=== PATIENT | female | born 1935 | race Caucasian/White ===

== ENCOUNTER 2019-03-19 17:28 | Emergency (ER) | payer OTHER ==
[2019-03-19 18:03] LABS: Urine Blood TRACE (NEG); Urine Glucose NEGATIVE (NEG); Urine Protein NEGATIVE (NEG)
[2019-03-19 18:09] LABS: Absolute Lymphocytes (CBC) 2.2 K/uL (0.7-4.9); Absolute Monocytes 0.9 K/uL (0.1-1.3); Absolute Neutrophil 2.6 K/uL (1.8-8.0); Basophils % 0.6 % (0-1.3); Eosinophils % 2.2 % (0-4.4); Hematocrit 38.5 % (36.0-45.0); MPV 10.3 fL (7.6-11.3); Monocytes % 14.5 % (3.3-12.3); RBC Red Blood Cell Count 4.31 M/uL (3.86-4.86)
[2019-03-19 18:16] LABS: Urine Bacteria <20 /HPF (<20); Urine Culture Reflex Order REFLEXED
[2019-03-19] MEDS ORDERED: NA CHLORIDE 0.9% 500 ML ONE (18:22)
[2019-03-19] MEDS ORDERED: cloNIDine HCl 0.1 MG TAB ONE (18:22)
[2019-03-19 18:27] LABS: ALT/SGPT 19 U/L (12-78); AST/SGOT 17 U/L (15-37); Albumin 3.7 g/dL (3.4-5.0); Alkaline Phosphatase 80 U/L (45-117); BUN Blood Urea Nitrogen 15 mg/dL (7-18); Bicarbonate 28 mmol/L (21-32); Bilirubin Direct < 0.1 mg/dL (0-0.2); Bilirubin Total 0.3 mg/dL (0.2-1.0); Glucose Level 101 mg/dL (74-106); Lipase 100 U/L (73-393); Potassium 3.7 mmol/L (3.5-5.1); Protein, Total 7.8 g/dL (6.4-8.2); Sodium Level 141 mmol/L (136-145)
--- NOTE | 2019-03-19 19:26 | RAD REPORT ---
EXAM DESCRIPTION: CTAbdomen Pelvis W Contrast - 03/19/2019 7:16 pm CLINICAL HISTORY: Abdominal pain. lower abdomen pain COMPARISON: <Comparisons> TECHNIQUE: Biphasic CT imaging of the abdomen and pelvis was performed with 100 ml non-ionic IV cont rast. All CT scans are performed using dose optimization technique as appropriate and may include automated exposure control or mA/KV adjustment according to patient size. FINDINGS: The lung bases are clear. The liver, spleen, pancreas, adrenal glands and kidneys are within normal limits. No bowel obstruction, free air, free fluid or abscess. Moderate stool volume in the colon. The append ix is normal. No evidence of significant lymphadenopathy. No suspicious bony findings. IMPRESSION: No acute intra-abdominal or pelvic finding.
--- NOTE | 2019-03-19 19:36 | ER ---
Nurse's Notes [facility] Name: Juliana Washburn Age: 84 yrs Sex: Female : 1935 Arrival Date: 03/19/2019 Time: 17:31 Bed 19 Private MD: Hudson Alvarado Diagnosis: Dysuria Presentation: 03/19 17:31 Presenting complaint: Patient states: pain with urination x 4 days. Blood tinged toilet ss paper after voiding that occurred yesterday. Pt gave urine specimen at PCP's office yesterday, but has not heard back about results. Transition of care: patient was not received from another setting of care. Onset of symptoms was April 19, 2019. Risk Assessment: Do you want to hurt yourself or someone else? Patient reports no desire to harm self or others. Initial Sepsis Screen: Does the patient meet any 2 criteria? No. Patient's initial sepsis screen is negative. Does the patient have a suspected source of infection? Yes: Dysuria/Frequency/Urgency/UTI. Care prior to arrival: None. 17:31 Method Of Arrival: Ambulatory ss 17:31 Acuity: CAROL 3 ss Historical: - Allergies: 17:35 Azithromycin; tw2 17:35 Morphine; tw2 - Home Meds: 17:35 metoprolol tartrate 25 mg Oral tab 1 tab once daily [Active]; meloxicam 15 mg Oral tab tw2 1 tab once daily [Active]; - PMHx: 17:35 Hypertension; Anxiety; tw2 - PSHx: 17:35 None; tw2 - Immunization history:: Adult Immunizations. - Social history:: Smoking status: . - Ebola Screening: : Patient denies travel to an Ebola-affected area in the 21 days before illness onset. Screenin:34 Abuse screen: Denies threats or abuse. Nutritional screening: No deficits noted. tw2 Tuberculosis screening: No symptoms or risk factors identified. Fall Risk Secondary diagnosis (15 points) impaired mobility. Assessment: 17:45 General: Appears in no apparent distress. comfortable, Behavior is calm, cooperative, em Denies fever. Pain: Denies pain. Neuro: Level of Consciousness is awake, alert, obeys commands, Oriented to person, place, time, situation. Cardiovascular: Capillary refill < 3 seconds Patient's skin is warm and dry. Respiratory: Airway is patent Respiratory effort is even, unlabored, Respiratory pattern is regular, symmetrical. GI: Abdomen is flat, Patient currently denies nausea, vomiting. : Reports hematuria. Derm: Skin is intact, is healthy with good turgor, Skin is pink, warm \T\ dry. Musculoskeletal: Capillary refill < 3 seconds, Range of motion: intact in all extremities. 18:00 Reassessment: The previous assessment is accurate, call light remains within reach. ss 18:48 Reassessment: Patient appears in no apparent distress at this time. Patient and/or em family updated on plan of care and expected duration. Pain level reassessed. Patient is alert, oriented x 3, equal unlabored respirations, skin warm/dry/pink. 19:05 Reassessment: Patient appears in no apparent distress at this time. Patient and/or jd3 family updated on plan of care and expected duration. Pain level reassessed. Patient is alert, oriented x 3, equal unlabored respirations, skin warm/dry/pink. Patient denies pain at this time. 19:53 Reassessment: Patient appears in no apparent distress at this time. Patient and/or jd3 family updated on plan of care and expected duration. Pain level reassessed. Patient is alert, oriented x 3, equal unlabored respirations, skin warm/dry/pink. Vital Signs: 17:31 BP 201 / 90; Pulse 85; Resp 18; Temp 98.6(O); Pulse Ox 100% on R/A; ss 18:30 BP 191 / 82; Pulse 79; Resp 18; Pulse Ox 99% on R/A; em 19:00 BP 153 / 76; Pulse 73; Resp 17 S; Pulse Ox 98% on R/A; jd3 19:53 BP 142 / 66; Pulse 60; Resp 16 S; Pulse Ox 96% on R/A; jd3 ED Course: 17:31 Patient arrived in ED. mr 17:31 Hudson Alvarado MD is Private Physician. mr 17:36 Arm band placed on. tw2 17:36 Call light in reach. Adult w/ patient. toll line mechanic on. Pulse ox on. NIBP on. tw2 17:39 Triage completed. ss 17:41 Hi Goodwin PA is PHCP. cp 17:41 Hi Maxwell MD is Attending Physician. cp 17:46 Urine collected: clean catch specimen, clear. 3 17:58 Xenia Wen, PHU is Primary Nurse. ss 18:00 Initial lab(s) drawn, by me, sent to lab. Inserted saline lock: 22 gauge in right dh3 forearm, using aseptic technique. Blood collected. 18:03 Mike Winter LVN is Primary Nurse. em 19:13 Patient moved to PA via wheelchair. ca 19:17 Primary Nurse role handed off by Mike Winter LVN jd3 19:17 Ede Sarmiento, PHU is Primary Nurse. jd3 19:17 CT Abd/Pelvis - W/Contrast: no oral contrast In Process Unspecified. EDMS 19:17 CT completed. Patient tolerated procedure well. Patient moved back from PA. nj 19:34 Hudson Alvarado MD is Referral Physician. cp 19:53 No provider procedures requiring assistance completed. IV discontinued, intact, jd3 bleeding controlled, No redness/swelling at site. Pressure dressing applied. Administered Medications: 18:11 Drug: NS 0.9% 250 ml Route: IV; Rate: bolus; Site: right forearm; em 19:54 Follow up: Response: No adverse reaction; IV Status: Completed infusion jd3 18:11 Drug: cloNIDine 0.2 mg Route: PO; em 19:10 Follow up: Response: No adverse reaction jd3 18:46 Drug: NS 0.9% 1000 ml Route: IV; Rate: 75 ml/hr; Site: right forearm; em 19:54 Follow up: Response: No adverse reaction; IV Status: Order to discontinue infusion jd3 Outcome: 19:35 Discharge ordered by MD. cp 19:53 Discharged to home ambulatory. jd3 19:53 Condition: stable 19:53 Discharge instructions given to patient, family, Instructed on discharge instructions, follow up and referral plans. medication usage, Demonstrated understanding of instructions, follow-up care, medications, Prescriptions given X 2. 19:57 Patient left the ED. jd3 Signatures: Dispatcher [employer] BENIGNOMery Wilson Mike Winter LVN LVN Xenia Wen RN RN Hi Goodwin, SLOAN PA Rylee Costello RN RN 2 Akash Gutierrez [facility] Ede Sarmiento RN RN jd3 Corrections: (The following items were deleted from the chart) 17:44 17:31 Presenting complaint: Patient states: Pain with urination and blood on toilet ss paper after voiding that began yesterday. 17:52 17:31 Acuity: CAROL 4 [facility]
--- NOTE | 2019-03-19 19:36 | EDPHYS ---
Physician Documentation [facility] Name: Juliana Washburn Age: 84 yrs Sex: Female : 1935 Arrival Date: 03/19/2019 Time: 17:31 Bed 19 Private MD: Hudson Alvarado ED Physician Hi Maxwell HPI: 03/19 18:00 This 84 yrs old Female presents to ER via Ambulatory with complaints of cp Urinary Problem. 18:00 The patient presents with urinary symptoms, dysuria, hematuria. cp 18:00 Onset: The symptoms/episode began/occurred 4 day(s) ago. Associated signs and symptoms: cp Pertinent positives: low back pain, lower abdomen pain, Pertinent negatives: fever. Historical: - Allergies: 17:35 Azithromycin; tw2 17:35 Morphine; tw2 - Home Meds: 17:35 metoprolol tartrate 25 mg Oral tab 1 tab once daily [Active]; meloxicam 15 mg Oral tab tw2 1 tab once daily [Active]; - PMHx: 17:35 Hypertension; Anxiety; tw2 - PSHx: 17:35 None; tw2 - Immunization history:: Adult Immunizations. - Social history:: Smoking status: . - Ebola Screening: : Patient denies travel to an Ebola-affected area in the 21 days before illness onset. ROS: 18:05 Constitutional: Negative for body aches, chills, fever, poor PO intake. cp 18:05 Eyes: Negative for injury, pain, redness, and discharge. cp 18:05 ENT: Negative for drainage from ear(s), ear pain, sore throat, difficulty swallowing, difficulty handling secretions. 18:05 Cardiovascular: Negative for chest pain, edema, palpitations. 18:05 Respiratory: Negative for cough, shortness of breath, wheezing. 18:05 Abdomen/GI: Positive for abdominal pain, of the suprapubic area, right lower quadrant and left lower quadrant, Negative for vomiting, diarrhea, constipation, black/tarry stool, rectal bleeding. 18:05 Back: Positive for radiated pain, of the low back area, Negative for injury or acute deformity, decreased range of motion. 18:05 : Positive for hematuria, burning with urination, Negative for vaginal bleeding. 18:05 Skin: Negative for rash. 18:05 Neuro: Negative for altered mental status, headache, weakness. 18:05 All other systems are negative. Exam: 18:15 Constitutional: The patient appears in no acute distress, alert, awake, non-toxic, well cp developed, well nourished. 18:15 Head/Face: Normocephalic, atraumatic. cp 18:15 Eyes: Periorbital structures: appear normal, Conjunctiva: normal, no exudate, no injection, Sclera: no appreciated abnormality, Lids and lashes: appear normal, bilaterally. 18:15 ENT: External ear(s): are unremarkable, Nose: is normal, Mouth: Lips: moist, Oral mucosa: moist, Posterior pharynx: is normal, airway is patent, no erythema, no exudate. 18:15 Chest/axilla: Inspection: normal, Palpation: is normal, no crepitus, no tenderness. 18:15 Cardiovascular: Rate: normal, Rhythm: regular. 18:15 Respiratory: the patient does not display signs of respiratory distress, Respirations: normal, no use of accessory muscles, no retractions, no splinting, no tachypnea, labored breathing, is not present, Breath sounds: are clear throughout, no decreased breath sounds, no stridor, no wheezing. 18:15 Abdomen/GI: Inspection: abdomen appears normal, Bowel sounds: active, all quadrants, Palpation: soft, in all quadrants, mild abdominal tenderness, in the suprapubic area, right lower quadrant and left lower quadrant, rebound tenderness, is not appreciated, voluntary guarding, is not appreciated, involuntary guarding, is not appreciated. 18:15 Back: pain, that is mild, of the low back area, ROM is normal. Vital Signs: 17:31 BP 201 / 90; Pulse 85; Resp 18; Temp 98.6(O); Pulse Ox 100% on R/A; ss 18:30 BP 191 / 82; Pulse 79; Resp 18; Pulse Ox 99% on R/A; em 19:00 BP 153 / 76; Pulse 73; Resp 17 S; Pulse Ox 98% on R/A; jd3 19:53 BP 142 / 66; Pulse 60; Resp 16 S; Pulse Ox 96% on R/A; jd3 MDM: 17:42 Patient medically screened. cp 19:35 Data reviewed: vital signs, nurses notes, lab test result(s), radiologic studies, CT cp scan, and as a result, I will discharge patient. 19:35 Counseling: I had a detailed discussion with the patient and/or guardian regarding: the cp historical points, exam findings, and any diagnostic results supporting the discharge/admit diagnosis, lab results, radiology results, the need for outpatient follow up, a family practitioner, to return to the emergency department if symptoms worsen or persist or if there are any questions or concerns that arise at home. Response to treatment: the patient's symptoms have mildly improved after treatment, and as a result, I will discharge patient. 03/19 17:48 Order name: Urine Microscopic Only; Complete Time: 18:57 cp 03/19 19:33 Interpretation: Normal except: UWBC 10-20; URBC 5-10. cp 03/19 17:51 Order name: Urine Dipstick--Ancillary (enter results); Complete Time: 18:57 ms 03/19 17:54 Order name: Basic Metabolic Panel 03/19 17:54 Order name: CBC with Diff; Complete Time: 18:57 cp 03/19 17:54 Order name: Creatinine for Radiology; Complete Time: 18:57 cp 03/19 17:54 Order name: Hepatic Function; Complete Time: 18:57 cp 03/19 17:48 Order name: Urine Dipstick-Ancillary (obtain specimen); Complete Time: 17:48 cp 03/19 17:54 Order name: Lipase; Complete Time: 18:57 cp 03/19 17:54 Order name: Basic Metabolic Panel; Complete Time: 18:57 EDMS 03/19 18:17 Order name: Urine Culture EDSC 03/19 18:59 Order name: CT Abd/Pelvis - W/Contrast: no oral contrast; Complete Time: 19:34 cp 03/19 17:54 Order name: IV Saline Lock; Complete Time: 18:04 cp 03/19 17:54 Order name: Labs collected and sent; Complete Time: 18:04 cp Administered Medications: 18:11 Drug: NS 0.9% 250 ml Route: IV; Rate: bolus; Site: right forearm; em 19:54 Follow up: Response: No adverse reaction; IV Status: Completed infusion jd3 18:11 Drug: cloNIDine 0.2 mg Route: PO; em 19:10 Follow up: Response: No adverse reaction jd3 18:46 Drug: NS 0.9% 1000 ml Route: IV; Rate: 75 ml/hr; Site: right forearm; em 19:54 Follow up: Response: No adverse reaction; IV Status: Order to discontinue infusion jd3 Disposition: 03/19/19 19:35 Discharged to Home. Impression: Dysuria. - Condition is Stable. - Discharge Instructions: Dysuria. - Prescriptions for Augmentin 875- 125 mg Oral Tablet - take 1 tablet by ORAL route every 12 hours for 7 days; 14 tablet. Pyridium 200 mg Oral Tablet - take 1 tablet by ORAL route every 8 hours for 3 days; 9 tablet. - Medication Reconciliation Form, Thank You Letter, Antibiotic Education, Prescription Opioid Use form. - Follow up: Hudson Alvarado MD; When: 2 - 3 days; Reason: Recheck today's complaints. - Problem is new. - Symptoms have improved. Addendum: 03/23/2019 08:20 Co-signature as Attending Physician, Hi Maxwell MD I agree with the assessment and c infante plan of care. Signatures: Dispatcher [employer] EDSC Hi Maxwell MD MD cha Munoz, Edgar, COPY READER COPY READER Hi Goodwin PA PA cp Rylee Baez RN RN tw2 Ede Sarmiento RN RN jd3 Corrections: (The following items were deleted from the chart) 03/19 19:57 19:35 03/19/2019 19:35 Discharged to Home. Impression: Dysuria. Condition is Stable. jd3 Forms are Medication Reconciliation Form, Thank You Letter, Antibiotic Education, Prescription Opioid Use. Follow up: Hudson Alvarado; When: 2 - 3 days; Reason: Recheck today's complaints. Problem is new. Symptoms have improved. cp
[2019-03-19 20:05] VITALS: TEMP 98.6
[2019-03-19 20:09] VITALS: BP 142/66; O2SAT 96
== END 2019-03-19 19:57 | disposition home or self-care (01) ==
LOC: ER 17:28
DX: R30.0 Dysuria (principal); I10 Essential (primary) hypertension; F41.9 Anxiety disorder, unspecified; Z88.1 Allergy status to other antibiotic agents; Z88.5 Allergy status to narcotic agent
CPT/HCPCS: 96361; 87088; 85025; 87086; 80048; 36415; 80076; 83690; 74177; 96360; 99285; Q9967; 81003; 81015

== ENCOUNTER 2019-11-23 20:41 | Observation (INO) | payer OTHER ==
[2019-11-23 21:20] LABS: Absolute Lymphocytes (CBC) 1.8 K/uL (0.7-4.9); Basophils % 0.9 % (0-1.3); Hematocrit 39.8 % (36.0-45.0); MPV 10.1 fL (7.6-11.3); RBC Red Blood Cell Count 4.37 M/uL (3.86-4.86)
[2019-11-23 21:34] LABS: ALT/SGPT 21 U/L (12-78); AST/SGOT 20 U/L (15-37); Alkaline Phosphatase 82 U/L (45-117); BUN Blood Urea Nitrogen 15 mg/dL (7-18); Bicarbonate 28 mmol/L (21-32); Bilirubin Direct < 0.1 mg/dL (0-0.2); Bilirubin Total 0.3 mg/dL (0.2-1.0); Glucose Level 114 mg/dL (74-106); Lipase 115 U/L (73-393); Potassium 3.3 mmol/L (3.5-5.1); Protein, Total 8.1 g/dL (6.4-8.2); Sodium Level 139 mmol/L (136-145)
[2019-11-23 23:04] LABS: Urine Blood NEGATIVE (NEG); Urine Glucose NEGATIVE (NEG); Urine Protein NEGATIVE (NEG); Urine Specific Gravity 1.015 (1.005-1.030); Urine pH 6.5 (5.0-7.0)
--- NOTE | 2019-11-24 00:43 | EDPHYS ---
Physician Documentation [facility] Name: Juliana Washburn Age: 84 yrs Sex: Female : 1935 Arrival Date: 11/23/2019 Time: 20:45 Bed 7 Private MD: ED Physician Walter Mackenzie HPI: 11/24 01:46 This 84 yrs old Female presents to ER via Ambulatory with complaints of tw4 Abdominal Pain. 01:46 The patient presents with abdominal pain in the epigastric area. Onset: The tw4 symptoms/episode began/occurred today. The symptoms radiate to mid-sternal area. Associated signs and symptoms: none. The symptoms are described as dull. Modifying factors: The symptoms are alleviated by nothing, the symptoms are aggravated by nothing. The patient has not experienced similar symptoms in the past. Historical: - Allergies: 11/23 21:10 Azithromycin; ea 21:10 Morphine; ea - Home Meds: 21:10 amlodipine 5 mg tab 1 tab once daily [Active]; ea - PMHx: 21:10 Anxiety; Hypertension; ea - PSHx: 21:10 None; ea - Immunization history:: Adult Immunizations up to date. - Coronavirus screen:: The patient has NOT traveled to [place], [place], or [place] in the past 14 days. Proceed with normal triage process as indicated. The patient has NOT had contact with known/suspected case of Coronavirus? Proceed with normal triage procedures. - Social history:: Smoking status: Patient denies any tobacco usage or history of. - Ebola Screening: : No symptoms or risks identified at this time. ROS: 11/24 01:46 Constitutional: Negative for fever, chills, and weight loss, Eyes: Negative for injury, tw4 pain, redness, and discharge, Respiratory: Negative for shortness of breath, cough, wheezing, and pleuritic chest pain, Back: Negative for injury and pain, MS/Extremity: Negative for injury and deformity, Skin: Negative for injury, rash, and discoloration, Neuro: Negative for headache, weakness, numbness, tingling, and seizure. Cardiovascular: Positive for chest pain, Negative for edema, orthopnea, palpitations, paroxysmal nocturnal dyspnea. Abdomen/GI: Positive for abdominal pain, nausea, Negative for nausea and vomiting, nausea, vomiting, and diarrhea, vomiting, diarrhea, constipation, abdominal cramps, abdominal distension, anorexia, dysphagia, black/tarry stool, rectal pain, rectal bleeding, bowel incontinence, flatulence. Exam: 01:46 Constitutional: This is a well developed, well nourished patient who is awake, alert, tw4 and in no acute distress. Head/Face: Normocephalic, atraumatic. Chest/axilla: Normal chest wall appearance and motion. Nontender with no deformity. No lesions are appreciated. Cardiovascular: Regular rate and rhythm with a normal S1 and S2. No gallops, murmurs, or rubs. Normal PMI, no JVD. No pulse deficits. Respiratory: Lungs have equal breath sounds bilaterally, clear to auscultation and percussion. No rales, rhonchi or wheezes noted. No increased work of breathing, no retractions or nasal flaring. Abdomen/GI: Soft, non-tender, with normal bowel sounds. No distension or tympany. No guarding or rebound. No evidence of tenderness throughout. Back: No spinal tenderness. No costovertebral tenderness. Full range of motion. MS/ Extremity: Pulses equal, no cyanosis. Neurovascular intact. Full, normal range of motion. Neuro: Awake and alert, GCS 15, oriented to person, place, time, and situation. Cranial nerves II-XII grossly intact. Motor strength 5/5 in all extremities. Sensory grossly intact. Cerebellar exam normal. Normal gait. Vital Signs: 11/23 21:05 BP 195 / 91; Pulse 73; Resp 17; Temp 98.2; Pulse Ox 100% on R/A; Weight 66.22 kg; ea Height 5 ft. 2 in. (157.48 cm); Pain 4/10; 22:47 BP 179 / 70; Pulse 73; Resp 18; Pulse Ox 100% ; ea 23:11 BP 171 / 76; Pulse 72; Resp 18; Pulse Ox 100% on R/A; ea 11/24 01:00 BP 169 / 79; Pulse 64; Resp 18; Pulse Ox 97% on R/A; ea 02:36 BP 173 / 73; Pulse 64; Resp 18; Temp 98; Pulse Ox 97% ; ea 11/23 21:05 Body Mass Index 26.70 (66.22 kg, 157.48 cm) ea MDM: 11/23 20:55 Patient medically screened. tw4 01/29 00:39 Data reviewed: vital signs, nurses notes. Data reviewed: lab test result(s), cardiac enzymes, CBC, electrolytes, radiologic studies, CT scan. Data interpreted: Pulse oximetry: Interpretation: normal. Test interpretation: by ED physician or midlevel provider: ECG, plain radiologic studies. 11/23 20:56 Order name: Basic Metabolic Panel; Complete Time: 21:47 [facility] 11/23 21:47 Interpretation: Normal except: K 3.3; GLUC 114; GFR 59. [facility] 11/23 20:56 Order name: CBC with Diff; Complete Time: 21:47 [facility] 11/23 21:47 Interpretation: Within normal limits. [facility] 11/23 20:56 Order name: Creatinine for Radiology; Complete Time: 21:47 [facility] 11/23 21:47 Interpretation: Normal except: GFR 58. 11/23 20:56 Order name: Hepatic Function; Complete Time: 21:47 [facility] 11/23 21:47 Interpretation: Normal except: GLOB 4.1; A/G 1.0. [facility] 11/23 20:56 Order name: Lipase; Complete Time: 21:47 [facility] 11/23 21:47 Interpretation: Within normal limits: LIP 115. [facility] 11/23 20:56 Order name: Urine Microscopic Only 11/23 21:04 Order name: Troponin I; Complete Time: 21:47 11/23 21:47 Interpretation: Within normal limits: TROP < 0.02. [facility] 11/23 21:47 Order name: CT Abd/Pelvis - IV Contrast Only [facility] 11/23 22:12 Order name: Urine Dipstick--Ancillary (enter results) [facility] 11/24 01:58 Order name: Lipid Profile [facility] 11/24 01:58 Order name: Lipid Profile [facility] 11/24 01:58 Order name: Troponin I [facility] 11/24 01:58 Order name: Troponin I [facility] 11/24 01:58 Order name: Troponin I [facility] 11/23 20:56 Order name: IV Saline Lock; Complete Time: 21:04 [facility] 11/23 20:56 Order name: Labs collected and sent; Complete Time: 21:05 [facility] 11/23 20:56 Order name: Urine Dipstick-Ancillary (obtain specimen); Complete Time: 00:10 [facility] 11/23 21:04 Order name: EKG - Nurse/Tech; Complete Time: 22:06 11/23 21:04 Order name: Cardiac monitoring; Complete Time: 22:06 11/24 00:40 Order name: CXR XRAY [facility] 11/24 01:58 Order name: Heart Healthy [facility] 11/24 01:58 Order name: Echo with Doppler [facility] 11/24 01:58 Order name: EKG Electrocardiogram [facility] 11/24 01:58 Order name: EKG Electrocardiogram [facility] EC:46 Rate is 74 beats/min. Rhythm is regular. QRS [place] is Normal. MA interval is normal. QRS tw4 interval is normal. QT interval is normal. No Q waves. T waves are Normal. No ST changes noted. Clinical impression: Normal ECG. Interpreted by me. Reviewed by me. Administered Medications: 01:53 Not Given (Hemodynamic Parameters): hydrALAZINE 10 mg IV at bolus once ea Disposition: 11/24/19 00:42 Hospitalization ordered by Yuni Neil for Observation. Preliminary diagnosis is Chest pain, unspecified. - Bed requested for Telemetry/MedSurg (observation). - Status is Observation. ea - Condition is Stable. - Problem is new. - Symptoms have improved. UTI on Admission? No Signatures: Dispatcher [employer] Angela Britt RN RN cg Antunez, Elena, RN RN ea Wadley, Terrence, MD MD tw4 Corrections: (The following items were deleted from the chart) 02:13 00:42 Hospitalization Ordered by Yuni Neil MD for Observation. Preliminary cg diagnosis is Chest pain, unspecified. Bed requested for Telemetry/MedSurg (observation). Status is Observation. Condition is Stable. Problem is new. Symptoms have improved. UTI on Admission? No. tw4 02:35 02:13 11/24/2019 00:42 Hospitalization Ordered by Yuni Neil MD for Observation. ea Preliminary diagnosis is Chest pain, unspecified. Bed requested for Telemetry/MedSurg (observation). Status is Observation. Condition is Stable. Problem is new. Symptoms have improved. UTI on Admission? No. cg
--- NOTE | 2019-11-24 00:43 | ER ---
Nurse's Notes [facility] Name: Juliana Washburn Age: 84 yrs Sex: Female : 1935 Arrival Date: 11/23/2019 Time: 20:45 Bed 7 Private MD: Diagnosis: Chest pain, unspecified Presentation: 11/23 21:05 Presenting complaint: Patient states: sudden sharp pain on the epigastric area that ea radiates down across the belly, rated as 10/10 initially. denies nausea/vomiting/diarrhea. Transition of care: patient was not received from another setting of care. Onset of symptoms was November 23, 2019 at 18:30. Risk Assessment: Do you want to hurt yourself or someone else? Patient reports no desire to harm self or others. Initial Sepsis Screen: Does the patient meet any 2 criteria? No. Patient's initial sepsis screen is negative. Does the patient have a suspected source of infection? No. Patient's initial sepsis screen is negative. Care prior to arrival: None. 21:05 Method Of Arrival: Ambulatory ea 21:05 Acuity: CAROL 3 ea Triage Assessment: 21:11 General: Appears in no apparent distress. Behavior is calm, cooperative. Pain: ea Complains of pain in abdomen Pain currently is 4 out of 10 on a pain scale. Neuro: Level of Consciousness is awake, alert, obeys commands, Oriented to person, place, time, situation. Cardiovascular: Patient's skin is warm and dry. Respiratory: Airway is patent. GI: Abdomen is flat, Reports constipation. Derm: Skin with poor turgor. Historical: - Allergies: 21:10 Azithromycin; ea 21:10 Morphine; ea - Home Meds: 21:10 amlodipine 5 mg tab 1 tab once daily [Active]; ea - PMHx: 21:10 Anxiety; Hypertension; ea - PSHx: 21:10 None; ea - Immunization history:: Adult Immunizations up to date. - Coronavirus screen:: The patient has NOT traveled to [place], [place], or [place] in the past 14 days. Proceed with normal triage process as indicated. The patient has NOT had contact with known/suspected case of Coronavirus? Proceed with normal triage procedures. - Social history:: Smoking status: Patient denies any tobacco usage or history of. - Ebola Screening: : No symptoms or risks identified at this time. Screenin:13 Abuse screen: Denies threats or abuse. Nutritional screening: No deficits noted. ea Tuberculosis screening: No symptoms or risk factors identified. Fall Risk None identified. Assessment: 21:13 General: Appears in no apparent distress. Pain: Complains of pain in epigastric area. ea Neuro: Level of Consciousness is awake, alert, obeys commands, Oriented to person, place, time, situation, Appropriate for age. Cardiovascular: Patient's skin is warm and dry. Respiratory: Airway is patent Respiratory effort is even, unlabored, Respiratory pattern is regular, symmetrical. Derm: Skin is pink, warm \T\ dry. Musculoskeletal: Circulation, motion, and sensation intact. 22:44 Reassessment: Patient and/or family updated on plan of care and expected duration. Pain ea level reassessed. Patient is alert, oriented x 3, equal unlabored respirations, skin warm/dry/pink. Returned from CT. 23:00 Reassessment: Patient and/or family updated on plan of care and expected duration. Pain ea level reassessed. Patient is alert, oriented x 3, equal unlabored respirations, skin warm/dry/pink. 11/24 00:00 Reassessment: Patient and/or family updated on plan of care and expected duration. Pain ea level reassessed. Patient is alert, oriented x 3, equal unlabored respirations, skin warm/dry/pink. Pt resting with eyes closed, respirations even and unlabored, chest expansions even and symmetrical. 01:39 Reassessment: Patient and/or family updated on plan of care and expected duration. Pain ea level reassessed. Patient is alert, oriented x 3, equal unlabored respirations, skin warm/dry/pink. 01:51 Reassessment: Report given to Laurie BAY. ea 02:30 Reassessment: Patient and/or family updated on plan of care and expected duration. Pain ea level reassessed. Patient is alert, oriented x 3, equal unlabored respirations, skin warm/dry/pink. Pt admitted to second floor, pt left ED via wheelchair per Laurie BAY . Pt tolerating well. Vital Signs: 11/23 21:05 BP 195 / 91; Pulse 73; Resp 17; Temp 98.2; Pulse Ox 100% on R/A; Weight 66.22 kg; ea Height 5 ft. 2 in. (157.48 cm); Pain 4/10; 22:47 BP 179 / 70; Pulse 73; Resp 18; Pulse Ox 100% ; ea 23:11 BP 171 / 76; Pulse 72; Resp 18; Pulse Ox 100% on R/A; ea 11/24 01:00 BP 169 / 79; Pulse 64; Resp 18; Pulse Ox 97% on R/A; ea 02:36 BP 173 / 73; Pulse 64; Resp 18; Temp 98; Pulse Ox 97% ; ea 11/23 21:05 Body Mass Index 26.70 (66.22 kg, 157.48 cm) ea ED Course: 11/23 20:45 Patient arrived in ED. jg7 20:55 Walter Mackenzie MD is Attending Physician. tw4 20:57 Polly Rudd RN is Primary Nurse. ea 21:00 Inserted saline lock: 20 gauge in right antecubital area, using aseptic technique. ea Blood collected. 21:09 Triage completed. ea 21:10 Arm band placed on Patient placed in the treatment room, on a stretcher, Patient ea notified of wait time. 21:13 Patient has correct armband on for positive identification. Bed in low position. Call ea light in reach. Side rails up X2. 22:42 CT Abd/Pelvis - IV Contrast Only In Process Unspecified. EDMS 11/24 00:40 Yuni Neil MD is Hospitalizing Provider. tw4 00:54 CXR XRAY In Process Unspecified. EDMS 01:39 No provider procedures requiring assistance completed. Patient admitted, IV remains in ea place. Administered Medications: 01:53 Not Given (Hemodynamic Parameters): hydrALAZINE 10 mg IV at bolus once ea Outcome: 00:42 Decision to Hospitalize by Provider. tw4 01:00 Instructed on the need for admit. ea 02:35 Admitted to Med/surg accompanied by nurse, via wheelchair, with chart, Report called to sherley Sullivan RN 02:35 Condition: stable 02:35 Patient left the ED. ea Signatures: Dispatcher [employer] EDPolly Huggins RN RN Walter Ramirez MD MD tw4 Oksana Eldridge jg
[2019-11-24] MEDS ORDERED: ACETAMINOPHEN 500 MG TAB PO PRN (01:50)
[2019-11-24] MEDS ORDERED: ALPRAZOLAM 0.25 MG TABLET PO PRN (01:50)
[2019-11-24] MEDS ORDERED: MORPHINE 4 MG/ML SYR IV PRN (01:50)
[2019-11-24 02:44] VITALS: BMI 26.8
[2019-11-24] MEDS: METOPROLOL TAR 50 MG TAB PO SCH ×3 (05:35→20:23)
[2019-11-24 06:05] LABS: HDL Cholesterol 74 mg/dL (40-60); LDL Cholesterol, Calculated 105 (<130); Troponin I < 0.02 ng/mL (0.0-0.045)
--- NOTE | 2019-11-24 06:39 | EKG ---
Test Date: 2019-11-23 Test Time: 21:20:00 Sales Rep: VIVIANA MEASUREMENT RESULTS: Intervals: Rate: 74 ND: 156 QRSD: 72 QT: 390 QTc: 432 [place]: P: 25 ND: 156 QRS: 3 T: 17 INTERPRETIVE STATEMENTS: Normal sinus rhythm Normal ECG Compared to ECG 07/28/2017 08:32:28 No significant changes Electronically Signed On 11-24-19 06:38:16 BOX STAMPER by Jose M Borges
--- NOTE | 2019-11-24 08:01 | RAD REPORT ---
EXAM DESCRIPTION: Sofi Single View11/24/2019 12:54 am CLINICAL HISTORY: Chest pain COMPARISON: 2018 FINDINGS: The lungs appear clear of acute infiltrate. The heart is mildly enlarged IMPRESSION: No acute abnormalities displayed
[2019-11-24] MEDS: PANTOPRAZOLE 40MG TABLET PO SCH ×2 (10:04→20:22)
[2019-11-24] MEDS: lisinopriL 10 MG TAB PO SCH (10:04)
[2019-11-24] MEDS: ASPIRIN EC 81 MG TAB PO SCH (10:04)
[2019-11-24] MEDS: ENOXAPARIN 40 MG/0.4 ML SQ SCH (10:04)
--- NOTE | 2019-11-24 10:52 | ECHO ---
HEIGHT: 5 ft 2 in WEIGHT: 146 lb 9.6 oz DATE OF STUDY: 11/24/[address]: Yuni Neil MD 2-DIMENSIONAL: YES M.MODE: YES DOPPLER: YES COLOR FLOW: YES TDS: PORTABLE: DEFINITY: BUBBLE STUDY: DIAGNOSIS: CHEST PAIN CARDIAC HISTORY: CATHERIZATION: NO SURGERY: NO PROSTHETIC VALVE: NO PACEMAKER: NO MEASUREMENTS (cm) DIASTOLIC (NORMALS) SYSTOLIC (NORMALS) IVSd 0.8 (0.6-1.2) LA Diam 3.6 (1.9-4.0) LVEF 55% LVIDd 4.2 (3.5-5.7) LVIDs 3.0 (2.0-3.5) %FS 28% LVPWd 0.8 (0.6-1.2) Ao Diam 2.6 (2.0-3.7) 2 DIMENSIONAL ASSESSMENT: RIGHT ATRIUM: NORMAL LEFT ATRIUM: NORMAL RIGHT VENTRICLE: NORMAL LEFT VENTRICLE: NORMAL TRICUSPID VALVE: NORMAL MITRAL VALVE: NORMAL PULMONIC VALVE: NORMAL AORTIC VALVE: NORMAL PERICARDIAL EFFUSION: NONE AORTIC ROOT: NORMAL LEFT VENTRICULAR WALL MOTION: NORMAL DOPPLER/COLOR FLOW: NORMAL COMMENTS: NORMAL 2-DIMENSIONAL ECHOCARDIOGRAM WITH DOPPLER. TECHNOLOGIST: ANTHONY DAVIES
--- NOTE | 2019-11-24 11:54 | RAD REPORT ---
EXAM DESCRIPTION: CT - Abdomen Pelvis W Contrast - 11/24/2019 4:59 am CLINICAL HISTORY: The patient is 84 years old and is Female; ABD PAIN TECHNIQUE: Axial computed tomography images of the abdomen and pelvis with intravenous contrast. S agittal and coronal reformatted images were created and reviewed. This CT exam was performed using one or more of the following dose reduction techniques: automated exposure control, adjustment of t he mA and/or kV according to patient size, and/or use of iterative reconstruction technique. COMPARISON: No relevant prior studies available. FINDINGS: LUNG BASES: Unremarkable. No mass. No consolidation. ABDOMEN: LIVER: Unremarkable. No mass. GALLBLADDER AND BILE DUCTS: No calcified stones. No ductal dilation. PANCREAS: The pancreas is atrophic. SPLEEN: Unremarkable. ADRENALS: Unremarkable. No mass. KIDNEYS AND URETERS: Unremarkable. The kidneys enhance symmetrically. No obstructing renal or ur eteral calculus is seen. No hydronephrosis or hydroureter. No perinephric fluid or stranding. STOMACH AND BOWEL: The stomach is decompressed. Small bowel is relatively normal in caliber. A m oderate to large amount of stool is present throughout colon. There is no mucosal thickening or evide nce of bowel obstruction. A small left inguinal hernia containing a knuckle of small bowel is noted . There is no evidence of strangulation. Findings are similar to prior exam. PELVIS: APPENDIX: The appendix is normal in caliber without surrounding inflammation. BLADDER: Unremarkable. No mass. REPRODUCTIVE: Unremarkable as visualized. ABDOMEN and PELVIS: INTRAPERITONEAL SPACE: Unremarkable. No free air. No significant fluid collection. BONES/JOINTS: Minimal multilevel degenerative changes spine is present. SOFT TISSUES: See above. VASCULATURE: Atherosclerosis of the vasculature is present. The vessels are normal in caliber. No abdominal aortic aneurysm. LYMPH NODES: Unremarkable. No enlarged lymph nodes. IMPRESSION: No acute findings on this contrasted CT of the abdomen and pelvis to explain the patient 's symptoms. Electronically signed by: Catie Reyna MD 11/23/2019 11:20 PM BRUSHER TENDER Due to temporary technical issues with the PACS/Fluency reporting system, reports are being signed by the in house radiologist as a courtesy to ensure prompt reporting. The interpreting radiologist is f ully responsible for the content of the report.
--- NOTE | 2019-11-24 12:50 | CON ---
History Of Present Illness: Ms. Washburn is 84. She came to the hospital with chest pain. The pain was epigastric, radiated downwards toward the navel. Since she has been in the hospital, EKGs and ca rdiac enzymes are normal. The pain lasted more than 2 hours. The patient has never had myocardial i nfarction, stroke, or diabetes before she takes blood pressure medicines. She has known peptic ulcer disease documented with endoscopy. The plan was made for her to get typical treatment for Helicobac ter pylori, but it apparently was never done and she has not been on any proton pump inhibitor or ano ther antacid regimen for several years. Physical Examination: GENERAL: 5 feet 2 inches, 146 pounds. HEENT: Normal. Lungs: Clear. Cardiac: Normal. Abdomen: Soft. Extremities: Normal. Diagnostic Studies: Electrocardiogram shows sinus rhythm is completely normal. Chest x-ray is ghassan l. Abdominal and pelvis CAT scan apparently showed nothing remarkable. Impression And Plan: The patient probably has recurrent peptic ulcer disease causing these symptoms. She is on Protonix and feeling better, so it is a possible explanation anyway. A pharmacologic nuc lear stress test and echocardiogram are pending and those are abnormal. We will return and consider doing a cardiac catheterization. WILLAM Voice ID: [id number] Report ID: [id number]
--- NOTE | 2019-11-24 13:41 | P.HP ---
Certification for Inpatient Patient admitted to: Observation With expected LOS: <2 Midnights Patient will require the following post-hospital care: None Practitioner: I am a practitioner with admitting privileges, knowledge of patient current condition, hospital course, and medical plan of care. Services: Services provided to patient in accordance with Admission requirements found in Title 42 Section 412.3 of the Code of Federal Regulations Patient History Date of Service: 11/24/19 Reason for admission: Chest pain rule out acute coronary syndrome History of Present Illness: Patient is an 84-year-old female came to the hospital chest discomfort. Pain was mainly in the sternal region with no radiation. She did have pain that went to the epigastric region and then it radiated to the left side underneath the rib cage. She also states that 2 days prior she had chest pain again and this time it radiated down to her left hand. She felt numbness and tingling for the next 10-15 minutes. This slowly went away. She has been followed up by Cardiology but has not had any interventions versus stress test performed in over a year. She does not remember the last time she had a stress test. She has multiple comorbidities and she will be admitted to be ruled out for an acute coronary syndrome. She has had a history of peptic ulcer disease as well. We can treat her with a PPI but we will also need to make sure this is not symptoms related to coronary artery disease. Further workup is pending. She will get troponins through today and her 2nd troponin will be this morning with the last troponin around 1:00 p.m.. Will probably need to do a stress test in a.m.. Allergies azithromycin Allergy (Verified 07/31/17 22:45) Hives morphine Allergy (Verified 07/31/17 22:45) feeling sick Home Medications: NK [No Home Meds] 11/24/19 - Past Medical/Surgical History Has patient received pneumonia vaccine in the past: No Diabetic: No -: HTN -: Anxiety -: vertigo -: Peptic ulcer disease Past Surgical History: Patient denies surgical history - Family History Father Medical History: Heart disease - Social History Smoking Status: Never smoker Alcohol use: No CD- Drugs: No Caffeine use: Yes Place of Residence: Home Review of Systems 10-point ROS is otherwise unremarkable Physical Examination - Vital Signs Temperature: 97.7 F Blood Pressure: 148/66 Pulse: 57 Respirations: 18 Pulse Ox (%): 100 - Physical Exam General: Alert, In no apparent distress, Oriented x3 HEENT: Atraumatic, PERRLA, Mucous membr. moist/pink, EOMI, Sclerae nonicteric Neck: Supple, 2+ carotid pulse no bruit, No LAD, Without JVD or thyroid abnormality Respiratory: Clear to auscultation bilaterally, Normal air movement Cardiovascular: Regular rate/rhythm, Normal S1 S2 Gastrointestinal: Normal bowel sounds, Soft and benign, Non-distended, No tenderness Musculoskeletal: No clubbing, No swelling, No tenderness Integumentary: No rashes Neurological: Normal gait, Normal speech, Normal strength at 5/5 x4 extr, Normal tone, Sensation intact, Cranial nerves 3-12 intact, Normal affect Lymphatics: No axilla or inguinal lymphadenopathy - Studies Laboratory Data (last 24 hrs) 11/23/19 21:00: Troponin I < 0.02 11/23/19 21:00: Creatinine 0.93 11/23/19 21:00: WBC 6.1, Hgb 13.0, Hct 39.8, Plt Count 192 11/23/19 21:00: Sodium 139, Potassium 3.3 L, BUN 15, Creatinine 0.91, Glucose 114 H, Total Bilirubin 0.3, AST 20, ALT 21, Alkaline Phosphatase 82, Lipase 115 Assessment & Plan - Problems (Diagnosis) (1) Chest pain, rule out acute myocardial infarction Current Visit: Yes Status: Acute (2) Vertigo Onset Date: 08/01/17 Current Visit: No Status: Acute (3) Hypertension Current Visit: No Status: Chronic Qualifiers: (4) Family history of ischemic heart disease Current Visit: Yes Status: Acute - Plan 1. Serial troponins and EKG 2. Cardiology consultation 3. Echocardiogram and inpatient stress test(pending cardiology evaluation) 4. Anti-platelet therapy, anti coagulation, beta-get, statin, and O2 as needed 5. IV morphine for pain 6. Nitro p.r.n. Discharge Plan: Home Plan to discharge in: 48 Hours - Advance Directives Does patient have a Living Will: Yes Does patient have a Durable POA for Healthcare: No - Code Status/Comfort Care Code Status Assessed: Yes Code Status: Full Code Critical Care: No Time Spent Managing PTS Care (In Minutes): 45
[2019-11-25] MEDS ORDERED: REGADENOSON 0.4 MG/5 ML SYR IV ONE (08:11)
[2019-11-25] MEDS: METOPROLOL TAR 50 MG TAB PO SCH (08:57)
--- NOTE | 2019-11-25 09:45 | RAD REPORT ---
EXAM DESCRIPTION: NM - Rest Stress Cardiac Imaging - 11/25/2019 9:38 am CLINICAL HISTORY: Chest pain. COMPARISON: 2014 TECHNIQUE: The patient was administered approximately 10mCi of Tc 99m Sestamibi prior to resting SPE CT imaging of the heart. The patient was then administered approximately 30 mCi of Tc 99m Sestamibi f ollowing exercise or pharmacologic stress. Multiplanar SPECT images were reviewed. FINDINGS: There is uniformity of radiotracer uptake involving the entire left ventricular myocardiu m on rest and stress images. The left ventricular ejection fraction equals 73% IMPRESSION: Negative for a myocardial perfusion defect
[2019-11-25] MEDS: ENOXAPARIN 40 MG/0.4 ML SQ SCH (11:00)
[2019-11-25] MEDS: ASPIRIN EC 81 MG TAB PO SCH (11:01)
[2019-11-25] MEDS: lisinopriL 10 MG TAB PO SCH (11:01)
[2019-11-25] MEDS: PANTOPRAZOLE 40MG TABLET PO SCH (11:01)
[2019-11-25 12:30] VITALS: O2SAT 97
--- NOTE | 2019-11-25 13:04 | P.DS ---
Admission Date: 11/24/19 Discharge Date: 11/25/19 Disposition: ROUTINE DISCHARGE Discharge Condition: GOOD Reason for Admission: Chest pain rule out acute coronary syndrome Consultations: Forest Fire Specialist Supervisor - Problems (1) Chest pain, rule out acute myocardial infarction Current Visit: Yes Status: Acute Hospital Course: Ms. Washburn is 84-year-old female who came to the hospital with complaints of substernal pain that was mostly in the epigastric area radiated to the left side underneath the ribcage. Initial evaluation with serial troponins were unremarkable. EKG had no acute ischemic changes. Patient was evaluated by electrical manager and underwent Erica-scan stress test which was unremarkable. Echocardiogram was unremarkable. The patient has been initiated on Protonix and symptoms have improved. She remained hemodynamically stable and will be discharged home to follow up with her PCP. Vital Signs/Physical Exam: Temp Pulse Resp BP Pulse Ox 98 F 61 18 137/62 94 11/25/19 08:00 11/25/19 08:00 11/25/19 08:00 11/25/19 08:00 11/25/19 08:00 General: Alert, In no apparent distress HEENT: Atraumatic, PERRLA, EOMI Neck: Supple, JVD not distended Respiratory: Clear to auscultation bilaterally, Normal air movement Cardiovascular: Regular rate/rhythm, Normal S1 S2 Gastrointestinal: Normal bowel sounds, No tenderness Musculoskeletal: No tenderness Integumentary: No rashes Neurological: Normal speech, Normal tone, Normal affect Lymphatics: No axilla or inguinal lymphadenopathy Laboratory Data at Discharge: WBC 6.1 K/uL (4.3-10.9) 11/23/19 21:00 Hgb 13.0 g/dL (12.0-15.0) 11/23/19 21:00 Hct 39.8 % (36.0-45.0) 11/23/19 21:00 Plt Count 192 K/uL (152-406) 11/23/19 21:00 Sodium 139 mmol/L (136-145) 11/23/19 21:00 Potassium 3.3 mmol/L (3.5-5.1) L 11/23/19 21:00 BUN 15 mg/dL (7-18) 11/23/19 21:00 Creatinine 0.91 mg/dL (0.55-1.3) 11/23/19 21:00 Glucose 114 mg/dL (74-106) H 11/23/19 21:00 Total Bilirubin 0.3 mg/dL (0.2-1.0) 11/23/19 21:00 AST 20 U/L (15-37) 11/23/19 21:00 ALT 21 U/L (12-78) 11/23/19 21:00 Alkaline Phosphatase 82 U/L (45-117) 11/23/19 21:00 Troponin I < 0.02 ng/mL (0.0-0.045) 11/24/19 13:13 Triglycerides 81 mg/dL (<150) 11/24/19 05:15 Cholesterol 195 mg/dL (<200) 11/24/19 05:15 HDL Cholesterol 74 mg/dL (40-60) H 11/24/19 05:15 Cholesterol/HDL Ratio 2.64 11/24/19 05:15 Lipase 115 U/L (73-393) 11/23/19 21:00 Home Medications: Aspirin 81 mg PO DAILY #30 tab.chew 11/25/19 Metoprolol Tartrate [Lopressor*] 25 mg PO BID #30 tab 11/25/19 Pantoprazole [Protonix Tab*] 40 mg PO DAILY #60 tab 11/25/19 lisinopriL [Prinivil*] 10 mg PO DAILY #30 tab 11/25/19 New Medications: Aspirin 81 mg PO DAILY #30 tab.chew lisinopriL [Prinivil*] 10 mg PO DAILY #30 tab Metoprolol Tartrate [Lopressor*] 25 mg PO BID #30 tab Pantoprazole [Protonix Tab*] 40 mg PO DAILY #60 tab Diet: AHA Activity: Fall precautions Followup: Hudson Alvarado MD [Primary Care Provider] - Rufino Ritter MD [ACTIVE - CAN ADMIT] -
--- NOTE | 2019-11-25 13:54 | TREADPHA ---
DX: CHEST PAIN Date of Study: 11/25/2019 Ht: 5 2 Wt: 146 lb 9.6 oz Consulting Physician: ELOISE MEDICATIONS: AMLODIPINE HISTORY: 84 YEAR OLD FEMALE WITH EPISODE OF CHEST PAIN. HISTORY OF ANXIETY, HYPERTENSION, GASTRIC ULCER, PAIN FREE AT THIS TIME PHYSICIAL EXAMINATION: RESTING B.P.: 151/66 RESTING H.R.: 63 RESTING EKG: NORMAL PROTOCOL: LEXISCAN EXERCISE TIME: 3:30 B.P. AT PEAK STRESS: 134/66 IMPRESSION: LEXISCAN STRESS TEST PERFROMED. CARDIOLITE INJECTED PER PROTOCOL. NO SUPRA VENTRICULAR TAHCYARDIA, NO VENTRICULAR TACHYCARDIA OR ARRHYTMIAS NOTED. PATIENT DENIED CHEST PAIN, TOLERATED WELL. PLEASE SEE NUCLEAR MEDICINE REPORT.
[2019-11-25 14:59] VITALS: BP 146/64; TEMP 97.8
--- NOTE | 2019-11-25 17:15 | PN ---
Date of Progress Note: 11/25/2019 Ms. Washburn was admitted with chest pain. She was seen by Dr. Borges on 11/24/2019. An echocardiogr am and stress test were ordered. Ms. Washburn's main symptoms were headache and midepigastric pain th at lasted hours. She does have a history of peptic ulcer disease. Has been under a lot of stress. Her echocardiogram report is normal. Lexiscan has been done and is pending. We will see what that s hows prior to making final decision, but I think using proton pump inhibitors when she goes home woul d be reasonable. COLLIN/JIHAN Voice ID: [id number] Report ID: [id number]
== END 2019-11-25 14:53 | disposition home or self-care (01) ==
LOC: ER 20:41 → ERHOLD 11-24 02:06 → 2ND 11-24 02:15
PROVIDERS: ADMIT Hospitalist; ATTEND Hospitalist
DX: R07.9 Chest pain, unspecified (principal); K27.9 Peptic ulcer, site unspecified, unspecified as acute or chronic, without hemorrhage or perforation; R42 Dizziness and giddiness; I10 Essential (primary) hypertension; Z82.49 Family history of ischemic heart disease and other diseases of the circulatory system
CPT/HCPCS: 93005; 93017; 93306; 85025; 80048; 36415; 80061; 80076; 81003; 84484 ×3; 83690; 74177; 71045; 78452; 99285; Q9967; J1650 ×2; J2785; A9500; G0378 ×3

== ENCOUNTER 2022-09-24 10:57 | Emergency (ER) | payer OTHER ==
--- OUTSIDE RECORDS SUMMARY | 2022-09-24 11:04 | XMS REPORT | Continuity of Care Document ---
:1935 Author Organization [facility] t Address [address] [place] [address] [address]. [address] [place] [address] Care Team Providers Name Role Phone MEGAN ANDRE Primary Care Physician Unavailable Therapy, Adc Covid Infusion Attending Clinician Unavailable Pj Perez MD Attending Clinician PJ PEREZ Attending Clinician Unavailable Sharon Ruiz DO Attending Clinician SHARON RUIZ Attending Clinician Unavailable Doctor Unassigned, Maish Vaya Attending Clinician Unavailable Trey Oseguera RN Attending Clinician Unavailable Ryan Lambert DO Attending Clinician Sabino Amaya DO Attending Clinician Fan_CLAY Attending Clinician Unavailable Otilia_A_AH Attending Clinician Unavailable SHARON RUIZ Admitting Clinician Unavailable Sabino Amaya DO Admitting Clinician [place] Admitting Clinician Unavailable Otilia_A_AH Admitting Clinician Unavailable Payers Payer Name Policy Type Policy Number Effective Date Expiration Date S [facility] [place] [facility] [id number] 2019 [place] 00:00:00 (MEDICARE REPLACEMENT/ADVANT AGE - HMO) Problems Condition Condition Condition Status Onset Resolution Last Treating Co mments Source Name Details Category Date Date Treatment Clinician Date Essential Essential Disease Active 2020-10 Uni vers hypertensi hypertensi 0-20 it y of on on 00:00: [address] Noncomplia Noncomplia Disease Active 2020-10 U nivers nce nce 0-20 ity of 00:00: [place] 00 Medical Branch Chest pain Chest pain Disease Active 2020-10 U nivers 0-19 ity of 00:00: [place] 00 [facility] Branch Atypical Atypical Disease Active 2020-10 Unive rs chest pain chest pain 0-19 it y of 00:00: [place] 00 [facility] Headache Headache Problem Active 2019-10 Gray ge 1-20 Family 00:00: Practic 00 e Hypertensi Hypertensi Problem Active [place] ve ve 3-05 Family disorder Disorder 00:00: Practi c 00 e Cough Cough Problem Active [place] 3-05 Family 00:00: Practic 00 e Allergies, Adverse Reactions, Alerts Allergy Allergy Status Severity Reaction(s) Onset Inactive Treating Comm ents Source Name Type Date Date Clinician NO KNOWN Drug Active Univers ALLERGIE Class ity of S [facility] Azithrom Allergy Active Mild to Abdominal Lucia lorenza ycin to moderate pain Family substanc Practic e e Social History Social Habit Start Date Stop Date Quantity Comments Source Exposure to Not sure [facility] SARS-CoV-2 (event) Medica l Branch Tobacco use and 2021-08-14 2021-08-14 Never used [facility] exposure 00:00:00 00:00:00 [facility] Sex Ass[birth year] At [birth year] [facility] 00:00:00 00:00:00 [facility] Smoking Status Start Date Stop Date Source Never smoker [facility] Medications Ordered Filled Start Stop Current Ordering Indication Dosage Frequency Signature Comments Components Source Medication Medication Date Date Medication? Clinician (SIG) Name Name sotrovimab 2021- No [id number] 500mg 500 mg, IV Univers (XEVUDY) 11-27 Infusion, ity o f 500 mg in 23:15: 22:39 ONCE, [place] NaCl 0.9% 00 :00 Administer Medi kris (NS) 50 mL over 30 Branch MINI-BAG Minutes, On Fri11/27/21 at 1715, For [address] able 24 hours refrigerat ed or 6 hours at room temperatur e including transporta tion and infusion time.<b r> ondansetron 2021- No 4mg 4 mg, Slow Univers (ZOFRAN 11-23 IV Push, ity of (PF)) 20:30: 19:26 ONCE, 1 [place] injection 4 00 :00 dose, On Medi kris mg Fri Branch 11/23/21 at 1430, MICHAEL acetaminoph 2021- No 650mg 650 mg, U nivers en 11-23 Oral, ity of (TYLENOL) 19:30: 18:33 ONCE, 1 [place] tablet 650 00 :00 dose, On Medic al mg Fri Branch 11/23/21 at 1330, MICHAEL NaCl 0.9% 2021- No 1000mL at 999 Uni vers (NS) bolus 11-23 mL/hr, ity of infusion 19:30: 20:33 1,000 mL, Yared as 1,000 mL 00 :00 IV Medical Infusion, Branch ONCE, 1 dose, On 11/23/21 at 1330, MICHAEL ondansetron Yes [id number] 4mg Take 1 Univers 4 mg 11-23 tablet by ity of disintegrat 00:00: mouth [place] ing tablet 00 every 8 Medica l (eight) Branch hours as needed for Nausea and Vomiting (N/V). ondansetron Yes [id number] 4mg Take 1 Univers 4 mg - tablet by ity of disintegrat 00:00: mouth [place] ing tablet 00 every 8 Medica l (eight) Branch hours as needed for Nausea and Vomiting (N/V). amLODIPine 2020-10 No [id number] 5mg Take 1 Univers 5 mg tablet 0-21 11-21 tablet by it y of 00:00: 05:59 mouth [place] 00 :00 daily for Medical 30 days. Branch amLODIPine 2020-10- No [id number] 5mg Take 1 Univers 5 mg tablet 0-21 11-21 tablet by it y of 00:00: 05:59 mouth [place] 00 :00 daily for Medical 30 days. Branch amLODIPine 2020-10- No [id number] 5mg Take 1 Univers 5 mg tablet 0-21 11-21 tablet by it y of 00:00: 05:59 mouth [place] 00 :00 daily for Medical 30 days. Branch aspirin 2020-10 Yes 81mg 81 mg, Univers chewable 0-20 Oral, ity of tablet 81 14:00: DAILY, [place] mg 00 First dose Medical on Fri08/15/21 at 0900, Until Discontinu ed, Routine enoxaparin 2020-10 Yes 30mg 30 mg, Unive rs (LOVENOX) 0-20 Subcutaneo ity of injection 14:00: [place] mg 00 First dose Medical on Fri08/15/21 at 0900, Until Discontinu ed, Routine acetaminoph 2020-10 Yes 650mg 650 mg, Un orin en 0-19 Oral, ity of (TYLENOL) 23:53: Q6HPRN, [place] tablet 650 22 Starting Medic al mg on Fri08/14/21 at 1853, Until Discontinu ed, Routine, Pain (scale 1-3) amLODIPine 2020-10 Yes 10mg 10 mg, Unive rs (NORVASC) 0-19 Oral, ity of tablet 10 23:15: DAILY, [place] mg 00 First dose Medical on Fri08/14/21 at 1815, Until Discontinu ed, Routine nitroglycer 2020-10 Yes .4mg 0.4 mg, Uni vers in 0-19 Sublingual ity of (NITROSTAT) 19:43: , Q5MIN Yared as sublingual 25 PRN, 3 Medical tablet 0.4 doses, Branch mg Starting on Fri08/14/21 at 1443, Until Discontinu ed, MICHAEL, Chest pain metoprolol metoprolol No 1 BID metoprolol [facility] tartrate 25 tartrate 25 tartrate Family mg tablet mg tablet 25 mg Prac tic Take 1 Take 1 tablet e tablet tablet Take 1 twice a day twice a day tablet by oral by oral twice a route. route. day by oral route. Robitussin Robitussin No Robitussin [place] Cough-Chest Cough-Chest Cough-Ches Family [place] DM 1 [place] DM 1 t [place] DM Practic teaspoon teaspoon 1 teaspoon e Tessalon Tessalon No 1capsul TID Tessalon [facility] Perles 100 Perles 100 e(s) Perles 100 Family mg capsule mg capsule mg capsule Practic Take 1 Take 1 Take 1 e capsule 3 capsule 3 capsule 3 times a day times a day times a by oral by oral day by route route oral route before before before meals for meals for meals for 10 days. 10 days. 10 days. Vital Signs Vital Name Observation Time Observation Value Comments Source Systolic blood 2021-11-27 23:37:00 125 mm[Hg] Univer sity of pressure [place] [facility] Diastolic blood 2021-11-27 23:37:00 97 mm[Hg] Unive rsity of pressure [place] [facility] Heart rate 2021-11-27 23:37:00 77 /min [facility]i ty [facility] [place] [facility] [place] Body temperature 2021-11-27 23:37:00 37.33 Smiley Univ ersity of [place] [facility] Respiratory rate 2021-11-27 23:37:00 18 /min Univ ersity of [place] [facility] Oxygen saturation in 2021-11-27 23:37:00 94 /min University of Arterial blood by [facility] Pulse oximetry Branch Body height 2021-11-27 21:57:00 160 cm [facility]i ty [facility] [place] [facility] [place] Body weight 2021-11-27 21:57:00 58.968 kg Universi ty of [place] [facility] BMI 2021-11-27 21:57:00 23.03 kg/m2 Universi ty [facility] [place] [facility] Systolic blood 2021-11-23 23:00:00 121 mm[Hg] Univer sity of pressure [place] [facility] Diastolic blood 2021-11-23 23:00:00 74 mm[Hg] Unive rsity of pressure [place] [facility] Heart rate 2021-11-23 23:00:00 63 /min Universi ty of [place] [facility] Respiratory rate 2021-11-23 23:00:00 18 /min Univ ersity of [place] [facility] Oxygen saturation in 2021-11-23 23:00:00 96 /min University of Arterial blood by [facility] Pulse oximetry Branch Body temperature 2021-11-23 20:00:00 37.67 Smiley Univ [facility] [place] [facility] Body weight 2021-11-23 17:47:00 68.493 kg Universi ty of [place] [facility] Systolic blood 2021-08-15 20:09:00 132 mm[Hg] Univer sity of pressure [place] [facility] Diastolic blood 2021-08-15 20:09:00 68 mm[Hg] Unive rsity of pressure [place] [facility] Heart rate 2021-08-15 20:09:00 65 /min [facility] Body temperature 2021-08-15 20:09:00 36.33 Smiley [facility] Respiratory rate 2021-08-15 20:09:00 18 /min [facility] Oxygen saturation in 2021-08-15 20:09:00 97 /min University Arterial blood by [facility] Pulse oximetry Branch Body weight 2021-08-14 19:00:00 68.493 kg [facility] BP Diastolic 2019-12-30 00:00:00 80 mm[Hg] [facility] Height 2019-12-30 00:00:00 62 [in_i] [facility] BMI (Body Mass 2019-12-30 00:00:00 27.4 kg/m2 [facility] Family Index) Practice BP Systolic 2019-12-30 00:00:00 140 mm[Hg] [facility] Body Weight 2019-12-30 00:00:00 150 [lb_av] [facility] Procedures Procedure Date / Time Performing Clinician Source Performed URINALYSIS 2021-11-23 21:08:00 Sharon Ruiz [facility] XR CHEST 1 VW 2021-11-23 18:57:29 Sharon Ruiz [facility] BLOOD CULTURE SCREEN 2021-11-23 18:51:00 Sharon Ruiz [facility] COVID-19 (ID NOW RAPID 2021-11-23 18:38:00 Sharon Ruiz [facility] S[facility]EN 2021-11-23 18:37:00 Sharon Ruiz [facility] MAGNESIUM 2021-11-23 18:37:00 Sharon Ruiz [facility] TROPONIN I 2021-11-23 18:37:00 Sharon Ruiz [facility] COMP. METABOLIC PANEL 2021-11-23 18:37:00 Sharon Ruiz [facility] ([id number]) [facility] CBC WITH DIFF 2021-11-23 18:37:00 Sharon Ruiz [facility] LACTIC ACID WHOLE BLOOD 2021-11-23 18:37:00 [facility] FOR 2021-11-23 17:29:39 Doctor Unassigned, No [facility] DIAGNOSIS AND TREATMENT Name Medical Branch AUTHORIZATION FOR 2021-08-21 05:01:00 Doctor Unassigned, No [facility] RELEASE OF PHI Name Medical Branch TRANSTHORACIC ECHO (TTE) 2021-08-15 14:55:00 Ender Espinoza U [facility] COMPLETE [facility] Branch GLYCOSYLATED HEMOGLOBIN 2021-08-15 08:58:00 Ender Espinoza [facility] (A1C) Medical Branch MAGNESIUM 2021-08-15 08:52:00 Ender Espinoza [facility] TROPONIN I 2021-08-15 08:52:00 Ender Espinoza [facility] BASIC METABOLIC PANEL 2021-08-15 08:52:00 Ender Espinoza [facility] (NA, K, CL, CO2, Medical Branch GLUCOSE, BUN, CREATININE, CA) LIPID PANEL 2021-08-15 08:52:00 Randy Menjivar [facility] ([id number])(TOTAL Medical Branch CHOLESTEROL, TRIGLYCERIDES, HDL) CBC WITH DIFF 2021-08-15 08:52:00 Ender Espinoza [facility] TROPONIN I 2021-08-15 03:33:00 [facility] (ID NOW RAPID 2021-08-14 20:35:00 Rayn Lambert [facility] TESTING) Medical Branch XR CHEST 1 VW 2021-08-14 19:42:42 Singer [facility] MAGNESIUM 2021-08-14 19:28:00 Singer [facility] TROPONIN I 2021-08-14 19:28:00 Singer [facility] COMP. METABOLIC PANEL 2021-08-14 19:28:00 Ryan Lambert [facility] ([id number]) Medical Branch CBC WITH DIFF 2021-08-14 19:28:00 Singer [facility] N-TERMINAL PRO-BNP 2021-08-14 19:28:00 Ryan Lambert [facility] HB ECG ROUTINE & RHYTHM 2021-08-14 18:59:59 Ryan Lambert [facility] NOTICE OF PRIVACY 2021-08-14 18:50:04 Doctor Unassigned, Ce [facility] Name [facility] Encounters Start End Encounter Admission Attending Care Care Encounter Source Date/Time Date/Time Type Type Clinicians Facility Department ID 2021-11-27 2021-11-27 Nurse Therapy, Adc Covid Infusion [facility] [id number] Univers 16:00:00 17:00:00 Visit Pj Perez [id number] ity of [place].686 [place]ICAL [id number] [facility] 053 Branch 2021-11-27 2021-11-27 Outpatient R ISRAEL [facility] [id number] Univers 16:00:00 16:00:00 PJ cifuentes [facility] 2021-11-23 2021-11-23 Emergency [facility] [id number] Univers 11:49:00 17:20:00 Sharon EPPS [id number] ity of [facility] [place] [id number] [facility] 084 Branch 2021-11-23 2021-11-23 Emergency X SARANEW [facility] ERT [id number] Univers 11:49:00 17:20:00 SHARON cifuentes [facility] 2021-08-21 2021-08-21 Orders Doctor GABRIEL [id number] Univers 00:00:00 00:00:00 Only Unassigned, RAINE [id number] ity of [facility]ish [facility] 4.2.7.2.686 Yared as [id number] [facility] 009 Branch 2021-08-16 2021-08-16 Transition Catrachito Oseguera [id number] Univers 00:00:00 00:00:00 of Care Trey Hernandez [id number] ity of [id number] [id number] [facility] 403 Branch 2021-08-14 2021-08-15 Emergency Ryan Lambert [facility] 1.2.840. [id number] Univers 13:57:00 16:23:00 Jose LuisSabino [id number] ity [place] 4.2.7.2.686 [facility] [id number] [facility] 081 Branch 2021-08-14 2021-08-14 Emergency X [facility] ERT [id number] Univers 13:50:00 13:50:00 ity of [facility] 2021-04-03 2021-04-03 Outpatient Miller_S_AH VFP VFP [id number] [place] 05:08:00 05:08:00 [id number] Family Practic e 2020-11-28 2020-11-28 Outpatient Nini-Mbayo VFP VFP [id number] [facility] 02:59:00 02:59:00 _A_AH 32960 Family Practic e 2020-11-07 2020-11-07 Outpatient Nini-Mbayo VFP VFP [id number] [facility] 05:08:00 05:08:00 _A_AH 53204 Family Practic e 2020-10-31 2020-10-31 Jackelin VFP [place] [id number] [facility] 00:00:00 00:00:00 Nini-Mbay [facility] [address] Omkar barcenas, MEDICAL ASSISTANT FLOAT: Medical - Practi c Liz35 Ирина [email or web address]_ e [facility], [place] [address], [place] [address] , Ph. 2020-09-19 2020-09-19 Outpatient Nini-Mbayo VFP VFP [id number] [facility] 08:58:00 08:58:00 _A_AH 18706 Family Practic e 2020-09-12 2020-09-12 Jackelin VFP [place] - [id number] [facility] 00:00:00 00:00:00 Nini-Mbay [facility] [address] Omkar barcenas, MEDICAL ASSISTANT FLOAT: Medical - Practi c 9235 Ирина [email or web address]_V@H_ e [facility], [place] [address], [place] [address] , Ph. 2020-03-22 2020-03-22 Outpatient Nini-Mbayo VFP VFP [id number] [facility] 06:29:00 06:29:00 _A_AH 84741 Family Practic e 2020-01-24 2020-01-24 Outpatient Nini-Mbayo VFP VFP [id number] [facility] 03:46:00 03:46:00 _A_AH 18398 Family Practic e 2020-01-17 2020-01-17 Outpatient Nini-Mbayo VFP VFP [id number] [facility] 02:50:00 02:50:00 _A_AH 87691 Family Practic e 2020-01-14 2020-01-14 Outpatient Nini-Mbayo VFP VFP [id number] [facility] 01:08:00 01:08:00 _A_AH 56752 Family Practic e 2020-01-13 2020-01-13 Outpatient Nini-Mbayo VFP VFP [id number] [facility] 06:34:00 06:34:00 _A_AH 68292 Family Practic e 2020-01-12 2020-01-12 Outpatient Nini-Mbayo VFP VFP [id number] [facility] 01:53:00 01:53:00 _A_AH 47917 Family Practic e 2020-01-07 2020-01-07 Outpatient Nini-Mbayo VFP VFP [id number] [facility] 05:38:00 05:38:00 _A_AH 63352 Family Practic e 2020-01-06 2020-01-06 Outpatient Nini-Mbayo VFP VFP [id number] [facility] 06:55:00 06:55:00 _A_AH 57965 Family Practic e 2020-01-05 2020-01-05 Outpatient Nini-Mbayo VFP VFP [id number] [facility] 03:22:00 03:22:00 _A_AH 13668 Family Practic e 2020-01-04 2020-01-04 Outpatient Nini-Mbayo VFP VFP [id number] [facility] 04:31:00 04:31:00 _A_AH 95281 Family Practic e 2019-12-30 2019-12-30 Jackelin VFP [place] - [id number] [facility] 00:00:00 00:00:00 Nini-Mbay [place] [address] Omkar barcenas MEDICAL ASSISTANT FLOAT: Medical - Pracshad c 9235 Ирина [email or web address]_ e [facility], [address] [place] [address], [place] [address] , Ph. 2019-12-23 2019-12-23 Outpatient Otilia [facility] 797 [facility]-202 [facility] 01:03:00 01:03:00 _A_ 25813 Family Practic e Results Test Description Test Time Test Comments Results Result Comments Source TROPONIN I 2021-11-23 19:22:53 Test Item Value Reference Range Interpretation Comme nts TROPONIN I (test code = 0.023 ng/mL See_Comment [Au tomated message] The [id number]) system which ge nerated this result tra nsmitted reference range : <=0.034. The reference r misty was not used to int erpret this result as normal/abnormal . TADEO (test code = TADEO) Reference (Normal) Range (defined by the 99th percentile reference limit): <= 0.034 ng/mL Note: Cardiac troponin begins to rise 3-4 hours after the onset of ischemia. Repeat in 4-6 hours if the sample was drawn within 3-4 hours of the onset of the symptom and found normal. Diagnosis of myocardial injury is made with acute changes in cTn concentrations with at least one serial sample above the 99th percentile upper reference limit (URL), taken together with the patient's clinical presentation. Biotin has been reported to cause a negative bias, interpret results relative to patient's use of biotin. Lab Interpretation Normal (test code = 08997-0) [facility] 19:11:29 Test Item Value Reference Range Interpretation Comments MAGNESIUM (test code = 0240938355) 1.8 mg/dL 1.7-2.4 Lab Interpretation (test code = Normal 77066-4) [facility]OLIC PAN[facility] (43168)2021-11-23 19:11:09 Test Item Value Reference Range Interpretation Comments NA (test code = 131 mmol/L 135-145 L 9252740313) K (test code = 4.1 mmol/L 3.5-5.0 0089357389) CL (test code = 95 mmol/L 98-108 L 9514445983) CO2 TOTAL (test code = 27 mmol/L 23-31 8850033049) AGAP (test code = 2-16 3192235193) BUN (test code = 14 mg/dL 7-23 0266042715) GLUCOSE (test code = 135 mg/dL 70-110 H 6568363576) CREATININE (test code = 0.67 mg/dL 0.50-1.04 2672871629) TOTAL BILI (test code = 0.8 mg/dL 0.1-1.8 0826334936) CALCIUM (test code = 8.3 mg/dL 8.6-10.6 L 3533547527) T PROTEIN (test code = 7.8 g/dL 6.3-8.2 5492076881) ALBUMIN (test code = 4.3 g/dL 3.5-5.0 7287148327) ALK PHOS (test code = 75 U/L 34-122 8868548244) ALTv (test code = 22 U/L 5-35 1742-6) AST(SGOT) (test code = 46 U/L 13-40 H 1472087547) eGFR (test code = mL/min/1.73m2 8046419234) TADEO (test code = TADEO) Association of Glomerular Filtration Rate (GFR) and Staging of Kidney Disease* + --+ --+ ------+| GFR (mL/min/1.73 m2) ?| With Kidney Damage ?| ?Without Kidney Damage+ --------+ --------+ +| ?>90 ?| ?Stage one ?| ? Normal ?+ ---+ ---+ -------+| ?60-89 ?| ?Stage two ?| ? Decreased GFR ? + --+ --+ ------+| ?30-59 ?| ?Stage three ?| ? Stage three ? + --+ --+ ------+| ?15-29 ?| ?Stage four ? | ? Stage four ?+ ---+ ---+ -------+| ?<15 (or dialysis) ? ?| ?Stage five ? | ? Stage five ?+ ---+ ---+ -------+ *Each stage assumes the associated GFR level has been in effect for at least three months. ?Stages 1 to 5, with or without kidney disease, indicate chronic kidney disease. Notes: Determination of stages one and two (with eGFR >59mL/min/1.73 m2) requires estimation of kidney damage for at least three months as defined by structural or functional abnormalities of the kidney, manifested by either:Pathological abnormalities or Markers of kidney damage (including abnormalities in the composition of the blood or urine or abnormalities in imaging tests). Lab Interpretation Abnormal (test code = 01806-2) [facility] WITH [id number] 18:53:08 Test Item Value Reference Range Interpretation Comments WBC (test code = See_Comment L [Automated 8290-2) message] The sy stem which generated this result transmitted reference range : 4.30 - 11.10 10*3/?L. The reference range was not used to interpret this result as normal/abnormal . RBC (test code = See_Comment [Automated 789-8) message] The sy stem which generated this result transmitted reference range : 3.93 - 5.25 10*6/?L. The reference range was not used to interpret this result as normal/abnormal . HGB (test code = 13.4 g/dL 11.6-15.0 718-7) HCT (test code = 40.5 % 35.7-45.2 4544-3) MCV (test code = 88.4 fL 80.6-95.5 787-2) MCH (test code = 29.3 pg 25.9-32.8 785-6) MCHC (test code = 33.1 g/dL 31.6-35.1 786-4) RDW-SD (test code = 43.0 fL 39.0-49.9 31751-2) RDW-CV (test code = 13.2 % 12.0-15.5 788-0) PLT (test code = See_Comment [Automated 777-3) message] The sy stem which generated this result transmitted reference range : 166 - 358 10*3/ ?L. The reference r misty was not used to interpret this result as normal/abnormal . MPV (test code = 11.1 fL 9.5-12.9 71062-4) NRBC/100 WBC (test See_Comment [Automat ed code = 1639589713) message] The system which generated this result transmitted reference range : 0.0 - 10.0 /100 WBCs. The refer ence range was not u sed to interpret th is result as normal/abnormal . NRBC x10^3 (test code <0.01 See_Comment [Auto mated = 4169134377) message] The s ystem which generated this result transmitted reference range : 10*3/?L. The reference range was not used to interpret this result as normal/abnormal . GRAN MAT (NEUT) % 70.5 % (test code = 770-8) IMM GRAN % (test code 0.20 % = 0215869055) LYMPH % (test code = 12.6 % 736-9) MONO % (test code = 16.5 % 5905-5) EOS % (test code = 0.0 % 713-8) BASO % (test code = 0.2 % 706-2) GRAN MAT x10^3(ANC) 2.85 10*3/uL 1.88-7.09 (test code = 7372809826) IMM GRAN x10^3 (test <0.03 0.00-0.06 code = 4639209732) LYMPH x10^3 (test code 0.51 10*3/uL 1.32-3.29 L = 731-0) MONO x10^3 (test code 0.67 10*3/uL 0.33-0.92 = 742-7) EOS x10^3 (test code = <0.03 0.03-0.39 L 711-2) BASO x10^3 (test code <0.03 0.01-0.07 = 704-7) Lab Interpretation Abnormal (test code = 18216-6) [facility] (08212)(TOTAL CHOLESTEROL, TRIGLYCERIDES, HDL)2021-08-15 13:53:01 Test Item Value Reference Range Interpretation Comments CHOL (test code = 212 mg/dL 120-200 H 0010958263) HDL (test code = 73 mg/dL >50 8440835320) HDLC RATIO (test code = See_Comment [Au tomated message] 6186809992) The system [employer] generated this result transmit juan reference range : <=4.5. The refe rence range was not u sed to interpret th is result as normal/abnormal . TRIG (test code = 144 mg/dL 30-170 0549386764) LDL CHOL (test code = 110 mg/dL See_Comment [Auto mated message] 76212-2) The system [employer] generated this result transmit juan reference range : <=160. The refe rence range was not u sed to interpret th is result as normal/abnormal . VLDL (test code = 29 mg/dL 5-60 7561172484) Lab Interpretation (test Abnormal code = 34197-7) [facility] (A1C)2021-08-15 11:35:08 Test Item Value Reference Range Interpretation Comments HGB A1C (test code = 5.9 % 4.0-5.7 H 4548-4) TADEO (test code = TADEO) Reference RangesNormal: <5.7%Prediabetes: 5.7 - 6.4%Diabetes: > 6.5% Lab Interpretation (test Abnormal code = 94869-4) [facility] [id number] 11:31:30 Test Item Value Reference Interpretation Comments Range TROPONIN I (test 0.009 ng/mL See_Comment [Automated code = 1329992257) message] The system which generated this result transmitted reference range : <=0.034. The reference range was not used to interpret this result as normal/abnormal . TADEO (test code = Reference (Normal) TADEO) Range (defined by the 99th percentile reference limit): <= 0.034 ng/mL Note: Cardiac troponin begins to rise 3-4 hours after the onset of ischemia. Repeat in 4-6 hours if the sample was drawn within 3-4 hours of the onset of the symptom and found normal. Diagnosis of myocardial injury is made with acute changes in cTn concentrations with at least one serial sample above the 99th percentile upper reference limit (URL), taken together with the patient's clinical presentation. Biotin has been reported to cause a negative bias, interpret results relative to patient's use of biotin. Lab Interpretation Normal (test code = 36068-5) [facility] [id number] 11:23:53 Test Item Value Reference Range Interpretation Comments MAGNESIUM (test code = 4104013301) 2.1 mg/dL 1.7-2.4 Lab Interpretation (test code = Normal 90759-7) [facility] Metabolic Panel (NA, K, CL, CO2, GLUCOSE, BUN, CREATININE, CA)2021-08-15 11:23:33 Test Item Value Reference Range Interpretation Comments NA (test code = 138 mmol/L 135-145 0350318107) K (test code = 4.2 mmol/L 3.5-5.0 7489409611) CL (test code = 104 mmol/L 98-108 7465865428) CO2 TOTAL (test code 29 mmol/L 23-31 = 3006750062) AGAP (test code = 2-16 4250042606) BUN (test code = 13 mg/dL 7-23 2336968518) GLUCOSE (test code = 92 mg/dL 70-110 0212366508) CREATININE (test code 0.87 mg/dL 0.50-1.04 = 0315956233) CALCIUM (test code = 9.3 mg/dL 8.6-10.6 8491307411) eGFR (test code = mL/min/1.73m2 7785166561) TADEO (test code = TADEO) Association of Glomerular Filtration Rate (GFR) and Staging of Kidney Disease* + + +- +| GFR (mL/min/1.73 m2) ?| With Kidney Damage ?| ?Without Kidney Damage+ ------+ ----+ ------+| ?>90 ?| ?Stage one ?| ? Normal ?+ -+ + -+| ?60-89 ?| ?Stage two ?| ? Decreased GFR ? + + +- +| ?30-59 ?| ?Stage three ?| ? Stage three ? + + +- +| ?15-29 ?| ?Stage four ? | ? Stage four ?+ -+ + -+| ?<15 (or dialysis) ? ?| ?Stage five ? | ? Stage five ?+ -+ + -+ *Each stage assumes the associated GFR level has been in effect for at least three months. ?Stages 1 to 5, with or without kidney disease, indicate chronic kidney disease. Notes: Determination of stages one and two (with eGFR >59mL/min/1.73 m2) requires estimation of kidney damage for at least three months as defined by structural or functional abnormalities of the kidney, manifested by either:Pathological abnormalities or Markers of kidney damage (including abnormalities in the composition of the blood or urine or abnormalities in imaging tests). [facility] with [id number] 10:45:46 Test Item Value Reference Range Interpretation Comments WBC (test code = See_Comment [Automated message] 6690-2) The system [employer] generated this result transmitted ref erence range: 4.30 - 1 1.10 10*3/?L. The re ference range was not u sed to interpret this result as normal/abnor mal. RBC (test code = See_Comment [Automated message] 509-8) The system [employer] generated this result transmitted ref erence range: 3.93 - 5 .25 10*6/?L. The re ference range was not u sed to interpret this result as normal/abnor mal. HGB (test code = 12.0 g/dL 11.6-15.0 718-7) HCT (test code = 36.6 % 35.7-45.2 4544-3) MCV (test code = 90.4 fL 80.6-95.5 787-2) MCH (test code = 29.6 pg 25.9-32.8 785-6) MCHC (test code = 32.8 g/dL 31.6-35.1 786-4) RDW-SD (test code 43.3 fL 39.0-49.9 = 90397-8) RDW-CV (test code 13.1 % 12.0-15.5 = 788-0) PLT (test code = See_Comment [Automated message] 777-3) The system [employer] generated this result transmitted ref erence range: 166 - 35 8 10*3/?L. The re ference range was not u sed to interpret this result as normal/abnor mal. MPV (test code = 11.8 fL 9.5-12.9 27710-0) NRBC/100 WBC (test See_Comment [Automat ed message] code = 8302104222) The syste [employer] which generated this result transmitted ref erence range: 0.0 - 10 .0 /100 WBCs. The refer ence range was not u sed to interpret this result as normal/abnor mal. NRBC x10^3 (test <0.01 See_Comment [Automated message] code = 1401703056) The [employer] which generated this result transmitted ref erence range: 10*3/?L. The reference range was not used to interpr et this result as normal/abnormal . GRAN MAT (NEUT) % 45.8 % (test code = 770-8) IMM GRAN % (test 0.20 % code = 0819547503) LYMPH % (test code 36.7 % = 736-9) MONO % (test code 14.3 % = 5905-5) EOS % (test code = 2.4 % 713-8) BASO % (test code 0.6 % = 706-2) GRAN MAT 2.12 10*3/uL 1.88-7.09 x10^3(ANC) (test code = 0357895838) IMM GRAN x10^3 <0.03 0.00-0.06 (test code = 1237697650) LYMPH x10^3 (test 1.70 10*3/uL 1.32-3.29 code = 731-0) MONO x10^3 (test 0.66 10*3/uL 0.33-0.92 code = 742-7) EOS x10^3 (test 0.11 10*3/uL 0.03-0.39 code = 711-2) BASO x10^3 (test 0.03 10*3/uL 0.01-0.07 code = 704-7) [facility]daf[facility] [id number] 04:51:30 Test Item Value Reference Interpretation Comments Range TROPONIN I (test 0.009 ng/mL See_Comment [Automated code = 1979863052) message] The system which generated this result transmitted reference range : <=0.034. The reference range was not used to interpret this result as normal/abnormal . TADEO (test code = Reference (Normal) TADEO) Range (defined by the 99th percentile reference limit): <= 0.034 ng/mL Note: Cardiac troponin begins to rise 3-4 hours after the onset of ischemia. Repeat in 4-6 hours if the sample was drawn within 3-4 hours of the onset of the symptom and found normal. Diagnosis of myocardial injury is made with acute changes in cTn concentrations with at least one serial sample above the 99th percentile upper reference limit (URL), taken together with the patient's clinical presentation. Biotin has been reported to cause a negative bias, interpret results relative to patient's use of biotin. Lab Interpretation Normal (test code = 64667-3) [facility] CampusTROPONIN [id number] 19:58:18 Test Item Value Reference Interpretation Comments Range TROPONIN I (test 0.004 ng/mL See_Comment [Automated code = 0114158211) message] The system which generated this result transmitted reference range : <=0.034. The reference range was not used to interpret this result as normal/abnormal . TADEO (test code = Reference (Normal) TADEO) Range (defined by the 99th percentile reference limit): <= 0.034 ng/mL Note: Cardiac troponin begins to rise 3-4 hours after the onset of ischemia. Repeat in 4-6 hours if the sample was drawn within 3-4 hours of the onset of the symptom and found normal. Diagnosis of myocardial injury is made with acute changes in cTn concentrations with at least one serial sample above the 99th percentile upper reference limit (URL), taken together with the patient's clinical presentation. Biotin has been reported to cause a negative bias, interpret results relative to patient's use of biotin. Lab Interpretation Normal (test code = 86684-6) [facility] Campus[facility]AL [id number] 19:55:13 Test Item Value Reference Range Interpretation Comments NT-proBNP (test code 242 pg/mL See_Comment [Autom ated = 7989281169) message] The system which generated this result transmitted reference range : <=450. The reference range was not used to interpret this result as normal/abnormal . TADEO (test code = TADEO) Biotin has been reported to cause a negative bias, interpret results relative to patient's use of biotin. Lab Interpretation Normal (test code = 73932-5) [facility] CampusCOMP[facility] METABOLIC PANEL (61078)2021-08-14 19:46:33 Test Item Value Reference Range Interpretation Comments NA (test code = 138 mmol/L 135-145 6709228709) K (test code = 3.8 mmol/L 3.5-5.0 6099571559) CL (test code = 105 mmol/L 98-108 4149803749) CO2 TOTAL (test code = 23 mmol/L 23-31 8616753439) AGAP (test code = 2-16 1791758308) BUN (test code = 15 mg/dL 7-23 6510820174) GLUCOSE (test code = 113 mg/dL 70-110 H 3959531606) CREATININE (test code = 0.89 mg/dL 0.50-1.04 5231138339) TOTAL BILI (test code = 0.6 mg/dL 0.1-1.5 8879659003) CALCIUM (test code = 10.1 mg/dL 8.6-10.6 9957831674) T PROTEIN (test code = 8.1 g/dL 6.3-8.2 8447959258) ALBUMIN (test code = 4.7 g/dL 3.5-5.0 0033085900) ALK PHOS (test code = 82 U/L 34-122 0718561411) ALTv (test code = 14 U/L 5-35 1742-6) AST(SGOT) (test code = 27 U/L 13-40 5832447325) eGFR (test code = mL/min/1.73m2 9033470854) TADEO (test code = TADEO) Association of Glomerular Filtration Rate (GFR) and Staging of Kidney Disease* + --+ --+ ------+| GFR (mL/min/1.73 m2) ?| With Kidney Damage ?| ?Without Kidney Damage+ --------+ --------+ +| ?>90 ?| ?Stage one ?| ? Normal ?+ ---+ ---+ -------+| ?60-89 ?| ?Stage two ?| ? Decreased GFR ? + --+ --+ ------+| ?30-59 ?| ?Stage three ?| ? Stage three ? + --+ --+ ------+| ?15-29 ?| ?Stage four ? | ? Stage four ?+ ---+ ---+ -------+| ?<15 (or dialysis) ? ?| ?Stage five ? | ? Stage five ?+ ---+ ---+ -------+ *Each stage assumes the associated GFR level has been in effect for at least three months. ?Stages 1 to 5, with or without kidney disease, indicate chronic kidney disease. Notes: Determination of stages one and two (with eGFR >59mL/min/1.73 m2) requires estimation of kidney damage for at least three months as defined by structural or functional abnormalities of the kidney, manifested by either:Pathological abnormalities or Markers of kidney damage (including abnormalities in the composition of the blood or urine or abnormalities in imaging tests). Lab Interpretation Abnormal (test code = 82001-0) [facility]2021-[facility] 19:46:33 Test Item Value Reference Range Interpretation Comments MAGNESIUM (test code = 4917796981) 2.0 mg/dL 1.7-2.4 Lab Interpretation (test code = Normal 57275-3) [facility] WITH [id number] 19:34:28 Test Item Value Reference Range Interpretation Comments WBC (test code = See_Comment [Automated message] 3990-2) The system [employer] generated this result transmitted ref erence range: 4.30 - 1 1.10 10*3/?L. The re ference range was not u sed to interpret this result as normal/abnor mal. RBC (test code = See_Comment [Automated message] 869-8) The system [employer] generated this result transmitted ref erence range: 3.93 - 5 .25 10*6/?L. The re ference range was not u sed to interpret this result as normal/abnor mal. HGB (test code = 13.3 g/dL 11.6-15.0 718-7) HCT (test code = 40.7 % 35.7-45.2 4544-3) MCV (test code = 91.3 fL 80.6-95.5 787-2) MCH (test code = 29.8 pg 25.9-32.8 785-6) MCHC (test code = 32.7 g/dL 31.6-35.1 786-4) RDW-SD (test code 43.0 fL 39.0-49.9 = 54308-1) RDW-CV (test code 12.9 % 12.0-15.5 = 788-0) PLT (test code = See_Comment [Automated message] 337-3) The system [employer] generated this result transmitted ref erence range: 166 - 35 8 10*3/?L. The re ference range was not u sed to interpret this result as normal/abnor mal. MPV (test code = 11.9 fL 9.5-12.9 25401-3) NRBC/100 WBC (test See_Comment [Automat ed message] code = 5858700716) The syste m which generated this result transmitted ref erence range: 0.0 - 10 .0 /100 WBCs. The refer ence range was not u sed to interpret this result as normal/abnor mal. NRBC x10^3 (test <0.01 See_Comment [Automated message] code = 7221887262) The syste m which generated this result transmitted ref erence range: 10*3/?L. The reference range was not used to interpr et this result as normal/abnormal . GRAN MAT (NEUT) % 57.0 % (test code = 770-8) IMM GRAN % (test 0.30 % code = 0890287378) LYMPH % (test code 30.4 % = 736-9) MONO % (test code 10.9 % = 5905-5) EOS % (test code = 0.8 % 713-8) BASO % (test code 0.6 % = 706-2) GRAN MAT 3.62 10*3/uL 1.88-7.09 x10^3(ANC) (test code = 6041865956) IMM GRAN x10^3 <0.03 0.00-0.06 (test code = 5252923978) LYMPH x10^3 (test 1.93 10*3/uL 1.32-3.29 code = 731-0) MONO x10^3 (test 0.69 10*3/uL 0.33-0.92 code = 742-7) EOS x10^3 (test 0.05 10*3/uL 0.03-0.39 code = 711-2) BASO x10^3 (test 0.04 10*3/uL 0.01-0.07 code = 704-7) [facility]"
[2022-09-24] MEDS ORDERED: NA CHLORIDE 0.9% 500 ML ONE (11:31)
[2022-09-24] MEDS ORDERED: ACETAMINOPHEN 500 MG TAB ONE (11:31)
[2022-09-24] MEDS ORDERED: DIAZEPAM 5 MG TABLET ONE (11:34)
[2022-09-24 12:01] LABS: Absolute Lymphocytes (CBC) 1.2 K/uL (0.7-4.9); Hematocrit 36.3 % (36.0-45.0); Lymphocytes % 22.4 % (15.3-44.8); MCV 91.1 fL (80-100); MPV 8.9 fL (7.6-11.3); RBC Red Blood Cell Count 3.98 M/uL (3.86-4.86)
[2022-09-24 12:17] LABS: Potassium 3.8 mmol/L (3.5-5.1); Troponin High Sensitivity 9.2 pg/mL (<58.9)
--- NOTE | 2022-09-24 12:40 | EDPHYS ---
Physician Documentation [facility] Name: Juliana Washburn Age: 87 yrs Sex: Female : 1935 Arrival Date: 09/24/2022 Time: 11:02 Bed 7 Private MD: Hudson Alvarado ED Physician Trevin Cedeño HPI: 09/24 11:35 This 87 yrs old Female presents to ER via Ambulatory with complaints of High Blood jr11 Pressure. 11:35 The patient has elevated blood pressure and discovered this physical therapy . Onset: jr11 The symptoms/episode began/occurred this morning. Modifying factors: The symptoms are aggravated by anxiety, The symptoms are alleviated by prescription meds, unsure what medicine she is prescribed but has not been taking . Associated signs and symptoms: Pertinent positives: dizziness, generalized lightheartedness, no focal neurologic deficit, no ataxia. Severity of symptoms: At its worst the blood pressure was 160 mm Hg, in the emergency department the blood pressure is are actually worse. Pt woke up with BP 160s, then was to 190s at PT so she was sent to ED. no CP, dyspnea, or any complaints aside from mild RENTERIA. Denies worse or thunderclap. Historical: - Allergies: 11:18 Azithromycin; ss 11:18 Morphine; ss - PMHx: 11:18 Anxiety; Hypertension; ss ROS: 11:35 All other systems are negative. jr11 Exam: 11:35 Constitutional: This is a well developed, well nourished patient who is awake, alert, jr11 and in no acute distress. Head/Face: Normocephalic, atraumatic. Eyes: Extra-ocular motions intact. Lids and lashes normal. Conjunctiva and sclera are non-icteric and not injected. Cornea within normal limits. Periorbital areas with no swelling, redness, or edema. ENT: Nares patent. No nasal discharge, no septal abnormalities noted. Oropharynx with no redness, swelling, or masses, exudates, or evidence of obstruction, uvula midline. Mucous membranes moist. Neck: Trachea midline, no thyromegaly or masses palpated, and no cervical lymphadenopathy. Supple, full range of motion without nuchal rigidity, or vertebral point tenderness. No Meningismus. Chest/axilla: Normal chest wall appearance and motion. Nontender with no deformity. No lesions are appreciated. Cardiovascular: Regular rate and rhythm with a normal S1 and S2. No gallops, murmurs, or rubs. Normal PMI, no JVD. No pulse deficits. Respiratory: Lungs have equal breath sounds bilaterally, clear to auscultation and percussion. No rales, rhonchi or wheezes noted. No increased work of breathing, no retractions or nasal flaring. Abdomen/GI: Soft, non-tender, with normal bowel sounds. No distension or tympany. No guarding or rebound. No evidence of tenderness throughout. Skin: Warm, dry with normal turgor. Normal color with no rashes, no lesions, and no evidence of cellulitis. MS/ Extremity: Pulses equal, no cyanosis. Neurovascular intact. Full, normal range of motion. Neuro: Awake and alert, GCS 15, oriented to person, place, time, and situation. No gross motor or sensory deficits. Vital Signs: 11:19 BP 202 / 89; Pulse 73; Resp 17; Temp 98.4(TE); Pulse Ox 99% on R/A; ss 11:56 BP 194 / 65; Pulse 60; Resp 18; Pulse Ox 100% on R/A; Pain 6/10; mb9 12:10 BP 170 / 69; Pulse 62; Resp 15; Pulse Ox 100% on R/A; Pain 0/10; mb9 12:30 BP 178 / 68; Pulse 63; Resp 16; Pulse Ox 100% on R/A; Pain 0/10; mb9 13:13 BP 166 / 70; Pulse 64; Resp 18; Pulse Ox 98% on R/A; Pain 0/10; mb9 MDM: 11:08 Patient medically screened. jr11 11:35 Differential diagnosis: hypertensive crisis, asymptomatic HTN, RENTERIA, anxiety. Data jr11 reviewed: vital signs, nurses notes. 11:44 ED course: EKG interpreted by me shows normal sinus rhythm, normal axis, normal jr11 intervals, no acute ST changes, EKG otherwise normal.. 12:38 ED course: Pt to take BP log, no concern for end organ dysfuction . jr11 09/24 11:26 Order name: Basic Metabolic Panel; Complete Time: 12:26 jr11 09/24 11:26 Order name: CBC with Diff; Complete Time: 12:26 jr11 09/24 11:26 Order name: NT PRO-BNP; Complete Time: 12:09/24 11:26 Order name: Troponin HS; Complete Time: 12:09/24 11: Order name: EKG; Complete Time: 11:09/24 11:26 Order name: Cardiac monitoring; Complete Time: 11:09/24 11:26 Order name: EKG - Nurse/Tech; Complete Time: 11:56 09/24 11:26 Order name: IV Saline Lock; Complete Time: 12:03 09/24 11:26 Order name: Labs collected and sent; Complete Time: :09/24 11: Order name: O2 Per Protocol; Complete Time: 09/24 11: Order name: O2 Sat Monitoring; Complete Time: Administered Medications: 11:30 Drug: Valium (diazepam) 2.5 mg Route: PO; mb9 12:11 Follow up: Response: No adverse reaction mb9 11:30 Drug: Tylenol 1000 mg Route: PO; mb9 12:10 Follow up: Response: No adverse reaction mb9 12:02 Drug: NS 0.9% 500 ml Route: IV; Rate: bolus; Site: right antecubital; mb9 13:00 Follow up: Response: No adverse reaction; IV Status: Completed infusion; IV Intake: ph 500ml Disposition Summary: 09/24/22 12:39 Discharge Ordered Location: Home [facility] Condition: Stable [facility] Diagnosis - Essential (primary) hypertension jr11 - Anxiety disorder, unspecified jr11 Discharge Instructions: - Discharge Summary Sheet jr11 - Hypertension, Adult jr11 - Form - Blood Pressure Record Sheet 11 - How to Take Your Blood Pressure [facility] Forms: - Medication Reconciliation Form jr11 - Thank You Letter jr11 - Antibiotic Education jr11 - Prescription Opioid Use [facility] Signatures: Dispatcher [employer] Xenia Purcell RN RN Trevin Hubbard MD MD 11 Mery Serrano RN RN mb9 Alisa Sunshine RN ph
--- NOTE | 2022-09-24 12:40 | ER ---
Nurse's Notes [facility] Name: Juliana Washburn Age: 87 yrs Sex: Female : 1935 Arrival Date: 09/24/2022 Time: 11:02 Bed 7 Private MD: Hudson Alvarado Diagnosis: Essential (primary) hypertension;Anxiety disorder, unspecified Presentation: 09/24 11:19 Chief complaint: Patient states: High blood pressure. Has not taken blood pressure ss medication in the past 6 months because it has been normal/ low. Coronavirus screen: Client denies travel out of the [place] in the last 14 days. Ebola Screen: Patient denies exposure to infectious person. Patient denies travel to an Ebola-affected area in the 21 days before illness onset. Initial Sepsis Screen: Does the patient meet any 2 criteria? No. Patient's initial sepsis screen is negative. Does the patient have a suspected source of infection? No. Patient's initial sepsis screen is negative. Risk Assessment: Do you want to hurt yourself or someone else? Patient reports no desire to harm self or others. Onset of symptoms is unknown. 11:19 Method Of Arrival: Ambulatory ss 11:19 Acuity: CAROL 2 ss Historical: - Allergies: 11:18 Azithromycin; ss 11:18 Morphine; ss - PMHx: 11:18 Anxiety; Hypertension; ss Screenin:15 Abuse screen: Denies threats or abuse. Denies injuries from another. Nutritional ph screening: No deficits noted. Tuberculosis screening: No symptoms or risk factors identified. Fall Risk None identified. Assessment: 11:15 General: Appears uncomfortable, Behavior is cooperative, anxious. Pain: Complains of mb9 pain in scalp Pain does not radiate. Pain currently is 6 out of 10 on a pain scale. Quality of pain is described as squeezing, Alleviated by nothing. Neuro: [place] Agitation-Sedation Scale (RASS): 0 - Alert and Calm Level of Consciousness is awake, alert, obeys commands, Oriented to person, place, time, situation, Appropriate for age Motion Study Engineer are equal bilaterally Moves all extremities. Gait is steady, Speech is normal, Facial symmetry appears normal, Pupils are PERRLA, Intact. 11:15 Cardiovascular: Heart tones S1 S2 present Rhythm is regular. Respiratory: Airway is mb9 patent Respiratory effort is even, unlabored, Respiratory pattern is regular, symmetrical, Breath sounds are clear bilaterally. GI: Abdomen is flat, Bowel sounds present X 4 quads. Abd is soft and non tender X 4 quads. : No signs and/or symptoms were reported regarding the genitourinary system. EENT: No signs and/or symptoms were reported regarding the EENT system. Derm: Skin is pink, warm \T\ dry. Musculoskeletal: Range of motion: intact in all extremities. 12:45 Reassessment: No changes from previously documented assessment. mb9 13:12 Reassessment: Patient states feeling better. Patient states symptoms have improved. mb9 Vital Signs: 11:19 BP 202 / 89; Pulse 73; Resp 17; Temp 98.4(TE); Pulse Ox 99% on R/A; ss 11:56 BP 194 / 65; Pulse 60; Resp 18; Pulse Ox 100% on R/A; Pain 6/10; mb9 12:10 BP 170 / 69; Pulse 62; Resp 15; Pulse Ox 100% on R/A; Pain 0/10; mb9 12:30 BP 178 / 68; Pulse 63; Resp 16; Pulse Ox 100% on R/A; Pain 0/10; mb9 13:13 BP 166 / 70; Pulse 64; Resp 18; Pulse Ox 98% on R/A; Pain 0/10; mb9 ED Course: 11:02 Patient arrived in ED. mr 11:02 Hudson Alvarado MD is Private Physician. mr 11:02 Trevin Cedeño MD is Attending Physician. jr11 11:15 Alisa Sunshine RN is Primary Nurse. ph 11:19 Arm band placed on right wrist. ss 11:19 Placed in gown. Bed in low position. Call light in reach. Side rails up X 1. mb9 11:19 Client placed on continuous cardiac and pulse oximetry monitoring. NIBP monitoring mb9 applied. 11:22 Triage completed. ss 11:28 Primary Nurse role handed off by Alisa Sunshine RN mb9 11:28 Mery Serrano RN is Primary Nurse. mb9 11:35 EKG done, by ED staff, reviewed by Trevin Cedeño MD. mb9 11:35 Missed attempt(s): 22 gauge in right forearm. Bleeding controlled, band aid applied, mb9 catheter tip intact. 11:57 Basic Metabolic Panel Sent. mb9 11:57 CBC with Diff Sent. mb9 11:57 NT PRO-BNP Sent. mb9 11:57 Troponin HS Sent. mb9 12:03 Inserted saline lock: 22 gauge in right antecubital area, using aseptic technique. mb9 Blood collected. done by [employer]. 13:13 No provider procedures requiring assistance completed. IV discontinued, intact, mb9 bleeding controlled, No redness/swelling at site. Pressure dressing applied. Administered Medications: 11:30 Drug: Valium (diazepam) 2.5 mg Route: PO; mb9 12:11 Follow up: Response: No adverse reaction mb9 11:30 Drug: Tylenol 1000 mg Route: PO; mb9 12:10 Follow up: Response: No adverse reaction mb9 12:02 Drug: NS 0.9% 500 ml Route: IV; Rate: bolus; Site: right antecubital; mb9 13:00 Follow up: Response: No adverse reaction; IV Status: Completed infusion; IV Intake: ph 500ml Medication: 13:13 VIS not applicable for this client. mb9 Intake: 13:00 IV: 500ml; Total: 500ml. ph Outcome: 12:39 Discharge ordered by . jessica 13:14 Discharged to home ambulatory. mb9 13:14 Condition: stable 13:14 Discharge instructions given to patient, Instructed on discharge instructions, follow up and referral plans. Demonstrated understanding of instructions, follow-up care. 13:14 Patient left the ED. mb9 Signatures: Kasi Mery Xenia Hess RN RN Alisa Sunshine RN RN Trevin Cedeño MD MD jr11 Mery Serrano, PHU RN mb9 Corrections: (The following items were deleted from the chart) 13:12 12:32 Reassessment: No changes from previously documented assessment. mb9 mb9
[2022-09-24 13:34] VITALS: TEMP 98.4
[2022-09-24 13:52] VITALS: BP 166/70; O2SAT 98
--- NOTE | 2022-09-25 16:27 | EKG ---
Test Date: 2022-09-24 Test Time: 11:40:20 Fish Packer: LESLYE MEASUREMENT RESULTS: Intervals: Rate: 59 KS: 158 QRSD: 70 QT: 414 QTc: 409 [place]: P: 27 KS: 158 QRS: 11 T: 48 INTERPRETIVE STATEMENTS: Sinus bradycardia Otherwise normal ECG Compared to ECG 11/23/2019 21:20:00 Sinus rhythm no longer present Electronically Signed On 09-25-22 16:23:13 RAP ARTIST by Rufino Ritter
== END 2022-09-24 13:14 | disposition home or self-care (01) ==
LOC: ER 10:57
DX: I10 Essential (primary) hypertension (principal); F41.9 Anxiety disorder, unspecified; Z88.3 Allergy status to other anti-infective agents; Z88.5 Allergy status to narcotic agent
CPT/HCPCS: 93005; 85025; 80048; 36415; 84484; 83880; 96360; 99284; J7040

== ENCOUNTER 2024-01-25 23:37 | Emergency (ER) | payer OTHER ==
[2024-01-26 00:10] LABS: Absolute Basophils 0.1 K/uL (0-0.5); Absolute Eosinophils 0.3 K/uL (0-0.5); Absolute Lymphocytes (CBC) 1.2 K/uL (0.7-4.9); Absolute Monocytes 0.7 K/uL (0.1-1.3); Absolute Neutrophil 2.3 K/uL (1.8-8.0); Basophils % 1.1 % (0-1.3); Eosinophils % 5.6 % (0-4.4); Hematocrit 32.6 % (36.0-45.0); Hemoglobin 11.1 g/dL (12.0-15.0); Lymphocytes % 26.9 % (15.3-44.8); MCH 30.8 pg (27.0-35.0); MCV 90.6 fL (80-100); MPV 8.9 fL (7.6-11.3); Monocytes % 14.6 % (3.3-12.3); Neutrophils % 51.8 % (41.7-73.7); Nucleated Red Blood Cells % 0.1 % (0-0); PT Prothrombin Time 11.6 SECONDS (9.5-12.5); Platelets 164 thou/uL (152-406); Protime INR 1.06; Red Cell Distribution Width 13.8 % (12.1-15.2)
[2024-01-26 00:24] LABS: Anion Gap 8.9 mEq/L (5.0-15.0); Potassium 3.9 mEq/L (3.5-5.1); Troponin High Sensitivity 11.8 pg/mL (<58.9)
[2024-01-26] MEDS ORDERED: cloNIDine HCL 0.1 MG TAB ONE (01:27)
--- NOTE | 2024-01-26 02:42 | ER ---
Nurse's Notes [facility] Name: Juliana Washburn Age: 88 yrs Sex: Female : 1935 Arrival Date: 01/25/2024 Time: 23:37 Bed 5 Private MD: Diagnosis: Essential (primary) hypertension Presentation: 01/24 23:39 Chief complaint: EMS states: Family members called because her blood pressure is ha1 running high. reports headache to the left side of head. 23:39 Coronavirus screen: Vaccine status: Patient reports being unvaccinated. Ebola Screen: ha1 No symptoms or risks identified at this time. Initial Sepsis Screen: Does the patient meet any 2 criteria? No. Patient's initial sepsis screen is negative. Does the patient have a suspected source of infection? No. Patient's initial sepsis screen is negative. Risk Assessment: Do you want to hurt yourself or someone else? Patient reports no desire to harm self or others. Onset of symptoms was January 25, 2024. 23:39 Method Of Arrival: EMS: [facility] ha1 23:39 Acuity: CAROL 3 ha1 Triage Assessment: 23:39 General: Appears comfortable, Behavior is calm, cooperative. Pain: Complains of pain in ha1 left side of head Pain does not radiate. Pain currently is 4 out of 10 on a pain scale. Quality of pain is described as pressure, Pain began gradually. Neuro: Level of Consciousness is awake, alert, obeys commands, Oriented to person, place, time, situation, Reports headache in left. Cardiovascular: Capillary refill < 3 seconds Patient's skin is warm and dry. Rhythm is sinus rhythm. Respiratory: Airway is patent Respiratory effort is even, unlabored, Respiratory pattern is regular, symmetrical. GI: No signs and/or symptoms were reported involving the gastrointestinal system. : No signs and/or symptoms were reported regarding the genitourinary system. Derm: Skin is pink, warm \T\ dry. Musculoskeletal: Circulation, motion, and sensation intact. Historical: - Allergies: 23:45 Azithromycin; ha1 23:45 Morphine; ha1 - Home Meds: 23:45 amlodipine 5 mg tab 1 tab once daily [Active]; ha1 - PMHx: 23:45 Anxiety; Hypertension; ha1 - Immunization history:: Adult Immunizations unknown. - Social history:: Smoking status: Patient denies any tobacco usage or history of. - Family history:: not pertinent. - Hospitalizations: : No recent hospitalization is reported. Screenin:45 [facility] ED Fall Risk Assessment (Adult) History of falling in the last 3 months, ha1 including since admission Yes- single mechanical fall (1 pt) Confusion or Disorientation No (0 pts) Intoxicated or Sedated No (0 pts) Impaired Gait No (0 pts) Mobility Assist Device Used Yes (1 pt) Altered Elimination No (0 pt) Score/Fall Risk Level 0 - 2 = Low Risk Oriented to surroundings, Maintained a safe environment, Hourly rounding (assess needs \T\ fall precautionary measures) done. Abuse screen: Denies threats or abuse. Denies injuries from another. Nutritional screening: No deficits noted. Tuberculosis screening: No symptoms or risk factors identified. Assessment: 23:39 Reassessment: see triage assessment. ha1 01/25 00:40 Reassessment: going to CT. ha1 01:05 Reassessment: Patient and/or family updated on plan of care and expected duration. Pain ha1 level reassessed. Patient is alert, oriented x 3, equal unlabored respirations, skin warm/dry/pink. back from CT. 02:04 Reassessment: Patient and/or family updated on plan of care and expected duration. Pain ha1 level reassessed. Patient is alert, oriented x 3, equal unlabored respirations, skin warm/dry/pink. Patient states symptoms have improved. 02:57 Reassessment: Patient and/or family updated on plan of care and expected duration. Pain ha1 level reassessed. Patient is alert, oriented x 3, equal unlabored respirations, skin warm/dry/pink. Patient states feeling better. Patient states symptoms have improved. Vital Signs: 01/24 23:39 BP 208 / 73; Pulse 73; Resp 17 S; Temp 98.1(O); Pulse Ox 97% on R/A; Weight 63.5 kg; ha1 Height 5 ft. 4 in. ; 01/25 00:09 BP 196 / 75; Pulse 70; Resp 17 S; Pulse Ox 98% on R/A; ha1 00:30 BP 182 / 70; Pulse 67; Resp 17 S; Pulse Ox 99% on R/A; ha1 01:30 BP 202 / 70; Pulse 67; Resp 17 S; Pulse Ox 99% on R/A; ha1 02:04 BP 176 / 71; Pulse 63; Resp 17 S; Pulse Ox 98% on R/A; ha1 02:56 BP 137 / 59; Pulse 66; Resp 17 S; Pulse Ox 97% on R/A; ha1 01/24 23:39 Body Mass Index 24.03 (63.50 kg, 162.56 cm) ha1 ED Course: 01/24 23:39 Patient arrived in ED. rn 23:39 Joshua Palma MD is Attending Physician. rn 23:39 Patient has correct armband on for positive identification. Placed in gown. Bed in low ha1 position. Call light in reach. Side rails up X 1. Adult w/ patient. 23:39 Arm band placed on right wrist. ha1 23:45 Triage completed. ha1 23:48 Maintain EMS IV. Dressing intact. Good blood return noted. Site clean \T\ dry. Gauge \T\ infante 1 site: 20 gauge left forearm. 23:50 Door closed. Noise minimized. Lights dimmed. Warm blanket given. ha1 04 00:09 Basic Metabolic Panel Sent. ha1 00:09 CBC with Diff Sent. ha1 00:09 NT PRO-BNP Sent. ha1 00:09 PT-INR Sent. ha1 00:09 Troponin HS Sent. ha1 00:44 XRAY Chest (1 view) In Process Unspecified. EDMS 00:58 CT Head Brain wo Cont In Process Unspecified. EDMS 00:[address] In Process Unspecified. EDMS 00:[address] In Process Unspecified. EDMS 01:25 Provided Education on: Blood pressure management . ha1 03:02 No provider procedures requiring assistance completed. IV discontinued, intact, cm10 bleeding controlled, No redness/swelling at site. Pressure dressing applied. Administered Medications: 01:32 Drug: cloNIDine PO 0.1 mg PO once Route: PO; ha1 02:55 Follow up: Response: No adverse reaction; Marked relief of symptoms; Blood pressure is ha1 lowered Medication: 01:06 VIS not applicable for this client. ha1 Outcome: 02:42 Discharge ordered by . rn 03:02 Discharged to home via wheelchair, with family, cm10 03:02 Condition: good 03:02 Discharge instructions given to patient, family, Instructed on discharge instructions, follow up and referral plans. Demonstrated understanding of instructions, follow-up care, 03:02 Patient left the ED. cm10 Signatures: Dispatcher [employer] Joshua Guerrero MD MD rn Ayala, Heidy RN RN 1 Yolanda Lopez RN RN 10 Corrections: (The following items were deleted from the chart) 01:06 01:05 Reassessment: back from [place] [id number]
--- NOTE | 2024-01-26 02:42 | EDPHYS ---
Physician Documentation [facility] Name: Juliana Washburn Age: 88 yrs Sex: Female : 1935 Arrival Date: 01/25/2024 Time: 23:37 Bed 5 Private MD: ED Physician Joshua Palma HPI: 01/24 23:42 This 88 yrs old Female presents to ER via Unassigned with complaints of high blood rn pressure. 23:42 The patient has elevated blood pressure and discovered this at home. Onset: The rn symptoms/episode began/occurred this morning. Modifying factors:. Severity of symptoms: At its worst the blood pressure was moderate, in the emergency department the blood pressure is improved. The patient has experienced similar episodes in the past. Patient reports started to feel strange this morning, reports feeling of fire all over her body. Checked her blood pressure and was 200 systolic. Took her blood pressure medication prior to coming in and blood pressure has improved. Patient still feels slight headache. No focal weakness or numbness. No slurred speech. No chest pain or shortness of breath. No abdominal or back pain.. Historical: - Allergies: 23:45 Azithromycin; ha1 23:45 Morphine; ha1 - Home Meds: 23:45 amlodipine 5 mg tab 1 tab once daily [Active]; ha1 - PMHx: 23:45 Anxiety; Hypertension; ha1 - Immunization history:: Adult Immunizations unknown. - Social history:: Smoking status: Patient denies any tobacco usage or history of. - Family history:: not pertinent. - Hospitalizations: : No recent hospitalization is reported. ROS: 23:42 Constitutional: Negative for fever, chills, and weight loss, Eyes: Negative for injury, rn pain, redness, and discharge, ENT: Negative for injury, pain, and discharge, Neck: Negative for injury, pain, and swelling, Cardiovascular: Negative for chest pain, palpitations, and edema, Respiratory: Negative for shortness of breath, cough, wheezing, and pleuritic chest pain, Abdomen/GI: Negative for abdominal pain, nausea, vomiting, diarrhea, and constipation, Back: Negative for injury and pain, : Negative for injury, bleeding, discharge, and swelling, MS/Extremity: Negative for injury and deformity, Skin: Negative for injury, rash, and discoloration, Neuro: Positive for headache, negative for focal weakness or numbness Exam: 23:42 Constitutional: This is a well developed, well nourished patient who is awake, alert, rn and in no acute distress. Head/Face: Normocephalic, atraumatic. Eyes: Pupils equal round and reactive to light, extra-ocular motions intact ENT: Nares patent. No nasal discharge, no septal abnormalities noted. Tympanic membranes are normal and external auditory canals are clear. Oropharynx with no redness, swelling, or masses, exudates, or evidence of obstruction, uvula midline. Mucous membranes moist. Neck: Trachea midline, no masses palpated, and no cervical lymphadenopathy. Supple, full range of motion without nuchal rigidity, or vertebral point tenderness. No Meningismus. Cardiovascular: Regular rate and rhythm. No pulse deficits. Respiratory: No increased work of breathing, no retractions or nasal flaring. Abdomen/GI: Soft, non-tender Skin: Warm, dry MS/ Extremity: Pulses equal, no cyanosis. Neuro: Awake and alert, GCS 15, oriented to person, place, time, and situation. Cranial nerves II-XII grossly intact. Motor strength 4/5 in all extremities. Sensory grossly intact. Vital Signs: 23:39 BP 208 / 73; Pulse 73; Resp 17 S; Temp 98.1(O); Pulse Ox 97% on R/A; Weight 63.5 kg; ha1 Height 5 ft. 4 in. ; 01/25 00:09 BP 196 / 75; Pulse 70; Resp 17 S; Pulse Ox 98% on R/A; ha1 00:30 BP 182 / 70; Pulse 67; Resp 17 S; Pulse Ox 99% on R/A; ha1 01:30 BP 202 / 70; Pulse 67; Resp 17 S; Pulse Ox 99% on R/A; ha1 02:04 BP 176 / 71; Pulse 63; Resp 17 S; Pulse Ox 98% on R/A; ha1 02:56 BP 137 / 59; Pulse 66; Resp 17 S; Pulse Ox 97% on R/A; ha1 01/24 23:39 Body Mass Index 24.03 (63.50 kg, 162.56 cm) [facility] MDM: 01/24 23:39 Patient medically screened. rn 01/25 02:35 Differential diagnosis: hypertensive crisis, Malignant HTN, intracerebral hemorrhage. rn Data reviewed: vital signs, nurses notes, lab test result(s), EKG, radiologic studies, CT scan, and as a result, I will discharge patient. Counseling: I had a detailed discussion with the patient and/or guardian regarding the historical points, exam findings, and any diagnostic results supporting the discharge/admit diagnosis, lab results, radiology results, the need for outpatient follow up, to return to the emergency department if symptoms worsen or persist or if there are any questions or concerns that arise at home. Response to treatment: the patient's symptoms have markedly improved after treatment, the patient's condition has returned to base line, the patient is now symptom free, and as a result, I will discharge patient. Special discussion: I discussed with the patient/guardian in detail that at this point there is no indication for admission to the hospital. It is understood, however, that if the symptoms persist or worsen the patient needs to return immediately for re-evaluation. Based on the history and exam findings, there is no indication for further emergent testing or inpatient evaluation. I discussed with the patient/guardian the need to see the christian education director for further evaluation of the symptoms. I discussed with the patient/guardian the need to see the primary care provider for further evaluation of the symptoms. ED course: No acute findings to indicate endorgan damage. CT head and angio is negative. Blood pressure down to 119/51 and patient feels better. Normal neuroexam. Troponin negative. Had long discussion with patient and family. Is supposed to take Norvasc as needed but patient very noncompliant per family. I have personally reviewed all of the results, including but not limited to blood tests and imaging deemed necessary to safely discharge this patient at this time. All results given to and printed out for patient. I personally went over all the results with the patient and answered all questions. Patient will follow-up with PCP and or specialist as discussed. Return precautions given and understood.. 01/24 23:40 Order name: Basic Metabolic Panel; Complete Time: 00:45 rn 01/24 23:40 Order name: CBC with Diff; Complete Time: 00:45 rn 01/24 23:40 Order name: NT PRO-BNP; Complete Time: 00:45 rn 01/24 23:40 Order name: PT-INR; Complete Time: 00:45 rn 01/24 23:40 Order name: Troponin HS; Complete Time: 00:45 rn 01/24 23:40 Order name: XRAY Chest (1 view) rn 01/24 23:40 Order name: CT Head Brain wo Cont rn 01/24 23:40 Order name: Head Angio CT rn 01/24 23:40 Order name: Neck Angio CT rn 01/24 23:40 Order name: EKG; Complete Time: 23:41 rn 01/24 23:40 Order name: Cardiac monitoring; Complete Time: 23:42 rn 01/24 23:40 Order name: EKG - Nurse/Tech; Complete Time: 00:08 rn 01/24 23:40 Order name: IV Saline Lock; Complete Time: 23:42 rn 01/24 23:40 Order name: Labs collected and sent; Complete Time: 00:08 rn 01/24 23:40 Order name: O2 Per Protocol; Complete Time: 00:08 rn 01/24 23:40 Order name: O2 Sat Monitoring; Complete Time: 00:08 rn Administered Medications: 01:32 Drug: cloNIDine PO 0.1 mg PO once Route: PO; ha1 02:55 Follow up: Response: No adverse reaction; Marked relief of symptoms; Blood pressure is ha1 lowered Disposition Summary: 01/26/24 02:42 Discharge Ordered Notes: Location: Home rn Problem: new rn Symptoms: have improved rn Condition: Stable rn Diagnosis - Essential (primary) hypertension rn Followup: rn - With: Private Physician - When: As needed - Reason: Recheck today's complaints, Re-evaluation by your physician Discharge Instructions: - Discharge Summary Sheet rn - Hypertension, Adult rn - Managing Your Hypertension rn Forms: - Medication Reconciliation Form rn - Thank You Letter rn - Antibiotic airborne operations manager - Prescription Opioid Use rn - Patient Portal Instructions rn - Leadership Thank You Letter rn Signatures: Dispatcher [employer] EDMS Joshua Palma MD MD rn Ayala, Heidy, RN RN ha1 Corrections: (The following items were deleted from the chart) 01/24 23:41 23:41 Head Brain Wo Cont+CT.RAD.BRZ ordered. EDMS EDMS 23:41 23:41 Neck Angio+CT.RAD.BRZ ordered. EDMS EDMS
[2024-01-26 09:18] VITALS: BP 137/59; TEMP 98.1; O2SAT 97
--- NOTE | 2024-01-26 13:32 | RAD REPORT ---
EXAM DESCRIPTION: CT - Head Brain Wo Cont - 01/26/2024 6:50 am CLINICAL HISTORY: 88 years, Female, HTN, RENTERIA COMPARISON: None FINDINGS: Multiple transaxial tomograms of the brain were obtained from the base of the skull to the vertex without contrast. An individualized dose optimization technique, Automated Exposure Control, was utilized for the perfo rmed procedure. BRAIN: The brain demonstrate prominence of the sulci and gyri corresponding to mild brain atrophy. Th ere is periventricular white matter changes of microvascular ischemia. Minimal right basal ganglia pu nctate calcification. No acute intracranial hemorrhage. No midline shift and/or mass effect. VENTRICLES: ateral ventricles and cisterns displace normal appearance. VASCULATURE: No visualized abnormalities in the arteries or dural venous sinuses. SCALP/SKULL: The calvarium demonstrate to be intact with no evidence for acute bony injuries. SINUSES: The visualized paranasal sinuses and mastoid air cells demonstrate to be clear. ORBITS: No significant abnormalities in the visualized orbital structures. IMPRESSION: No acute intracranial hemorrhage or mass effect. Mild brain atrophy with periventricular white matter changes of microvascular ischemia. Electronically signed by: Qamar Murry MD 01/26/2024 01:18 AM CDT Due to temporary technical issues with the PACS/Fluency reporting system, reports are being signed by the in house radiologist without review as a courtesy to ensure prompt reporting. The interpreting r adiologist is fully responsible for the content of the report.
--- NOTE | 2024-01-26 13:34 | RAD REPORT ---
EXAM DESCRIPTION: RAD - Chest Single View - 01/26/2024 12:42 am CLINICAL HISTORY: 88 years Female HTN TECHNIQUE: One view of the chest. COMPARISON: No prior exams provided for comparison. FINDINGS: Evidence of prior granulomas disease in the chest. The lungs are otherwise clear without f ocal consolidation, effusion, or pneumothorax. Aortic atherosclerosis. No definite congestive failure . No acute osseous abnormalities. IMPRESSION: No acute findings in the chest. Electronically signed by: Delmi Machado MD 01/26/2024 12:51 AM CDT Due to temporary technical issues with the PACS/Fluency reporting system, reports are being signed by the in house radiologist without review as a courtesy to ensure prompt reporting. The interpreting r adiologist is fully responsible for the content of the report.
--- NOTE | 2024-01-26 13:35 | RAD REPORT ---
EXAM DESCRIPTION: CT - Neck Angio - 01/26/2024 6:50 am CLINICAL HISTORY: The patient is 88 years old and is Female; HEADACHE TECHNIQUE: [place] [facility] [place]/head and neck CT angiography protocol performed with intravenous contras t. This CT exam was performed using one or more of the following dose reduction techniques: autom ated exposure control, adjustment of the mA and/or kV according to patient size, and/or use of iterat karmen reconstruction technique. MIP reconstructed images were created and reviewed. DLP: 1185 mGy*cm COMPARISON: Without contrast of the same day. FINDINGS: HEAD: RIGHT ANTERIOR CEREBRAL ARTERY: Unremarkable. No occlusion or significant stenosis. Anterior co mmunicating artery is present. No aneurysm. RIGHT MIDDLE CEREBRAL ARTERY: Unremarkable. No occlusion or significant stenosis. No aneurysm. RIGHT POSTERIOR CEREBRAL ARTERY: Unremarkable. No occlusion or significant stenosis. No aneurys m. RIGHT INTRACRANIAL INTERNAL CAROTID ARTERY: Unremarkable. No significant stenosis. No dissectio n or occlusion. RIGHT INTRACRANIAL VERTEBRAL ARTERY: Unremarkable. No significant stenosis. No dissection or oc clusion. LEFT ANTERIOR CEREBRAL ARTERY: Unremarkable. No occlusion or significant stenosis. No aneurysm. LEFT MIDDLE CEREBRAL ARTERY: Unremarkable. No occlusion or significant stenosis. No aneurysm. LEFT POSTERIOR CEREBRAL ARTERY: Unremarkable. No occlusion or significant stenosis. No aneurysm . LEFT INTRACRANIAL INTERNAL CAROTID ARTERY: Unremarkable. No significant stenosis. No dissection or occlusion. LEFT INTRACRANIAL VERTEBRAL ARTERY: Unremarkable. No significant stenosis. No dissection or occ lusion. BASILAR ARTERY: Unremarkable. No occlusion or significant stenosis. No aneurysm. OTHER VASCULATURE: No vascular malformation. BRAIN AND EXTRA-AXIAL SPACES: Cerebral volume loss and chronic small vessel ischemic changes. NECK: RIGHT COMMON CAROTID ARTERY: Unremarkable. No significant stenosis. No dissection or occlusion. RIGHT EXTRACRANIAL INTERNAL CAROTID ARTERY: Less than 50% stenosis of the bilateral cervical ICAs, right greater than left. RIGHT EXTERNAL CAROTID ARTERY: Unremarkable. No occlusion. RIGHT EXTRACRANIAL VERTEBRAL ARTERY: Unremarkable. No significant stenosis. No dissection or oc clusion. LEFT COMMON CAROTID ARTERY: Unremarkable. No significant stenosis. No dissection or occlusion. LEFT EXTRACRANIAL INTERNAL CAROTID ARTERY: Less than 50% stenosis of the bilateral cervical ICAs, r ight greater than left. LEFT EXTERNAL CAROTID ARTERY: Unremarkable. No occlusion. LEFT EXTRACRANIAL VERTEBRAL ARTERY: Unremarkable. No significant stenosis. No dissection or occ lusion. LUNG APICES: Visualized lung zones are clear. HEAD and NECK: BONES/JOINTS: Multilevel degenerative changes of cervical spine. Diffuse osteopenia. Partial segmen tation at C5-6. No discrete lytic or blastic abnormalities. SOFT TISSUES: Unremarkable. CAROTID STENOSIS REFERENCE USING NASCET CRITERIA: % ICA stenosis = (1 - narrowest ICA diameter/diameter of distal cervical ICA) x 100. Mild - <50% stenosis. Moderate - 50-69% stenosis. Severe - 70-94% stenosis. Near occlusion - 95-99% stenosis. Occluded - 100% stenosis. IMPRESSION: 1. No intracranial large vessel occlusion. No cervical flow limiting stenosis. 2. Less than 50% stenosis of the bilateral cervical ICAs, right greater than left. 3. Cerebral volume loss and chronic small vessel ischemic changes. CT head Consider MRI brain for further evaluation. 4. Multilevel degenerative changes of cervical spine. Diffuse osteopenia. Partial segmentation at C 5-6. Electronically signed by: Khoa Burgess DO 01/26/2024 01:22 AM CDT Due to temporary technical issues with the PACS/Fluency reporting system, reports are being signed by the in house radiologist without review as a courtesy to ensure prompt reporting. The interpreting r adiologist is fully responsible for the content of the report.
--- NOTE | 2024-01-26 13:36 | RAD REPORT ---
EXAM DESCRIPTION: CT - Head angio - 01/26/2024 6:50 am CLINICAL HISTORY: 88 years, Female, HTN, RENTERIA COMPARISON: None FINDINGS: Multiple transaxial tomograms of the brain were obtained from the base of the skull to the vertex without contrast. An individualized dose optimization technique, Automated Exposure Control, was utilized for the perfo rmed procedure. BRAIN: The brain demonstrate prominence of the sulci and gyri corresponding to mild brain atrophy. Th ere is periventricular white matter changes of microvascular ischemia. Minimal right basal ganglia pu nctate calcification. No acute intracranial hemorrhage. No midline shift and/or mass effect. VENTRICLES: ateral ventricles and cisterns displace normal appearance. VASCULATURE: No visualized abnormalities in the arteries or dural venous sinuses. SCALP/SKULL: The calvarium demonstrate to be intact with no evidence for acute bony injuries. SINUSES: The visualized paranasal sinuses and mastoid air cells demonstrate to be clear. ORBITS: No significant abnormalities in the visualized orbital structures. IMPRESSION: No acute intracranial hemorrhage or mass effect. Mild brain atrophy with periventricular white matter changes of microvascular ischemia. Electronically signed by: Qamar Murry MD 01/26/2024 01:18 AM CDT Due to temporary technical issues with the PACS/Fluency reporting system, reports are being signed by the in house radiologist without review as a courtesy to ensure prompt reporting. The interpreting r adiologist is fully responsible for the content of the report.
--- NOTE | 2024-01-26 13:38 | EKG ---
Test Date: 2024-01-25 Test Time: 23:55:29 Strainer Mill Operator: CAITLIN MEASUREMENT RESULTS: Intervals: Rate: 69 ME: 166 QRSD: 66 QT: 400 QTc: 428 [place]: P: 38 ME: 166 QRS: 6 T: 27 INTERPRETIVE STATEMENTS: Sinus rhythm with premature supraventricular complexes Otherwise normal ECG Compared to ECG 09/24/2022 11:40:20 Atrial premature complex(es) now present Sinus bradycardia no longer present Electronically Signed On 01-26-24 13:36:13 CDT by Ignacio Stnoe
== END 2024-01-26 03:02 | disposition home or self-care (01) ==
LOC: ER 23:37
DX: I10 Essential (primary) hypertension (principal); F41.9 Anxiety disorder, unspecified; Z88.1 Allergy status to other antibiotic agents; Z88.5 Allergy status to narcotic agent
CPT/HCPCS: 93005; 85025; 80048; 36415; 85610; 84484; 83880; 70450; 70496; 70498; 71045; 99284; Q9967